=== PATIENT | male | born 1935 | race Caucasian/White ===

== ENCOUNTER 2016-08-08 07:55 | Emergency (ER) | payer MEDICARE, OTHER ==
[2016-08-08 08:02] VITALS: TEMP 97.9
[2016-08-08] MEDS ORDERED: RX INFO: IV CONTRAST WAS GIVEN 1 EACH MISC MISCELLANE PRN (08:16)
[2016-08-08] MEDS ORDERED: SODIUM CHLORIDE 0.9% 1,000 ML IV STA (08:17)
--- NOTE | 2016-08-08 08:24 | ED ---
Fall HPI - General Chief Complaint: Fall Stated Complaint: Hip pain Time Seen by Provider: 08/08/16 08:10 Source: patient, RN notes reviewed Mode of arrival: wheelchair - History of Present Illness Initial Comments: 80-year-old male presents to the emergency department with a chief complaint of right flank pain. Patient had a fall in the bathroom last night and continues to complain of pain to the right flank area. They state he did not hit his head. He does take aspirin. He is complaining of pain to the right flank area as well as right hip pain. He has been able to ambulate since the incident. They noticed a bruise of the right flank so they are concerned. Patient has no head injury. He denies any other complaints or any other injuries at this time. States his pain is mild worse to touch.Patient denies any recent fever, chills, shortness of breath, chest pain, abdominal pain, nausea vomiting, numbness or tingling, dysuria or hematuria, constipation or diarrhea, headaches or visual changes, or any other current symptoms. - Related Data Home Medications Medication Instructions Recorded Confirmed Allopurinol [Zyloprim] 300 mg PO Q48H 08/08/16 08/08/16 Aspirin 81 mg PO DAILY 08/08/16 08/08/16 Atorvastatin [Lipitor] 20 mg PO HS 08/08/16 08/08/16 Brinzolamide/Brimonidine Tart 1 drop BOTH EYES BID 08/08/16 08/08/16 [Simbrinza 1%-0.2% Eye Drops] Cholecalciferol [Vitamin D3] 1,000 unit PO DAILY 08/08/16 08/08/16 Cyanocobalamin (Vitamin B-12) 1,000 mcg PO DAILY 08/08/16 08/08/16 [Vitamin B-12] Galantamine HBr [Galantamine ER] 8 mg PO DAILY 08/08/16 08/08/16 Glimepiride [Amaryl] 1 mg PO AC-BRKFST 08/08/16 08/08/16 Latanoprost [Xalatan 0.005%] 1 drop RIGHT EYE HS 08/08/16 08/08/16 Memantine [Namenda] 10 mg PO BID 08/08/16 08/08/16 Metoprolol Succinate (ER) [Toprol 100 mg PO DAILY 08/08/16 08/08/16 Xl] Terazosin HCl 5 mg PO HS 08/08/16 08/08/16 Valsartan [Diovan] 160 mg PO DAILY 08/08/16 08/08/16 Previous Rx's Medication Instructions Recorded Azithromycin [Zithromax] 250 mg PO DIRECTED #6 tab 08/08/16 Allergies Allergy/AdvReac Type Severity Reaction Status Date / Time No Known Allergies Allergy Verified 08/08/16 08:54 Review of Systems ROS Statement: Those systems with pertinent positive or pertinent negative responses have been documented in the HPI. ROS Other: All systems not noted in ROS Statement are negative. Past Medical History Past Medical History: Hyperlipidemia, Hypertension History of Any Multi-Drug Resistant Organisms: None Reported Past Surgical History: No Surgical Hx Reported Past Psychological History: No Psychological Hx Reported Smoking Status: Never smoker Past Alcohol Use History: None Reported Past Drug Use History: None Reported General Exam - General Exam Comments Initial Comments: General: The patient is awake and alert, in no distress, and does not appear acutely ill. Eye: Pupils are equal, round and reactive to light, extra-ocular movements are intact; there is normal conjunctiva bilaterally. No signs of icterus. Ears, nose, mouth and throat: There are moist mucous membranes and no oral lesions. Neck: The neck is supple, there is no tenderness. Cardiovascular: There is a regular rate and rhythm. No murmur, rub or gallop is appreciated. Respiratory: Lungs are clear to auscultation, respirations are non-labored, breath sounds are equal. No wheezes, stridor, rales, or rhonchi. Gastrointestinal: Soft, non-distended, non-tender abdomen without masses or organomegaly noted. There is no rebound or guarding present. No CVA tenderness. Bowel sounds are unremarkable. Bruising over the left flank with some associated point tenderness. Back: There is no tenderness to palpation in the midline. There is no obvious deformity. No rashes noted. Musculoskeletal: Normal ROM, no tenderness, There is no pedal edema. There is no calf tenderness or swelling. Sensation intact. Pulses equal bilaterally 2+. Neurological: CN II-XII intact, There are no obvious motor or sensory deficits. Coordination appears grossly intact. Speech is normal. Skin: Skin is warm and dry and no rashes or lesions are noted. Psychiatric: Cooperative, appropriate mood & affect, normal judgment. Limitations: no limitations Course Vital Signs 08/08/16 08/08/16 07:59 10:00 Temperature 97.9 F Pulse Rate 64 67 Respiratory 18 18 Rate Blood Pressure 173/78 192/88 O2 Sat by Pulse 97 95 Oximetry Medical Decision Making - Medical Decision Making 80-year-old male presents for fall. At this time patient's CAT scan x-rays are reviewed and negative. There is concern for possible pneumonia. Patient has no symptoms however due to the findings we'll start him on a course of azithromycin. We did discuss close follow-up with his doctor return parameters all questions. They state Michael management plan. They will be discharged home. - Lab Data Result diagrams: 08/08/16 08:37 08/08/16 08:37 Lab Results 08/08/16 08/08/16 08/08/16 Range/Units 08:37 08:37 08:37 WBC 8.4 (3.8-10.6) k/uL RBC 4.32 (4.30-5.90) m/uL Hgb 13.9 (13.0-17.5) gm/dL Hct 42.0 (39.0-53.0) % MCV 97.3 (80.0-100.0) fL MCH 32.1 (25.0-35.0) pg MCHC 33.0 (31.0-37.0) g/dL RDW 14.1 (11.5-15.5) % Plt Count 176 (150-450) k/uL Neutrophils % 60 % Lymphocytes % 28 % Monocytes % 6 % Eosinophils % 5 % Basophils % 0 % Neutrophils # 5.1 (1.3-7.7) k/uL Lymphocytes # 2.3 (1.0-4.8) k/uL Monocytes # 0.5 (0-1.0) k/uL Eosinophils # 0.4 (0-0.7) k/uL Basophils # 0.0 (0-0.2) k/uL PT 10.4 (9.0-12.0) sec INR 1.0 (<1.1) APTT 25.3 (22.0-30.0) sec Sodium 142 (137-145) mmol/L Potassium 4.2 (3.5-5.1) mmol/L Chloride 107 (98-107) mmol/L Carbon Dioxide 25 (22-30) mmol/L Anion Gap 10 mmol/L BUN 24 H (9-20) mg/dL Creatinine 1.31 H (0.66-1.25) mg/dL Est GFR (MDRD) Af Amer >60 (>60 ml/min/1.73 sqM) Est GFR (MDRD) Non-Af 52 (>60 ml/min/1.73 sqM) Glucose 115 H (74-99) mg/dL Calcium 9.0 (8.4-10.2) mg/dL Total Bilirubin 0.9 (0.2-1.3) mg/dL AST 39 (17-59) U/L ALT 28 (21-72) U/L Alkaline Phosphatase 67 (38-126) U/L Total Protein 7.1 (6.3-8.2) g/dL Albumin 4.0 (3.5-5.0) g/dL Urine Color Urine Appearance (Clear) Urine pH (5.0-8.0) Ur Specific Hudson (1.001-1.035) Urine Protein (Negative) Urine Glucose (UA) (Negative) Urine Ketones (Negative) Urine Blood (Negative) Urine Nitrite (Negative) Urine Bilirubin (Negative) Urine Urobilinogen (<2.0) mg/dL Ur Leukocyte Esterase (Negative) Urine RBC (0-5) /hpf Urine WBC (0-5) /hpf Hyaline Casts (0-2) /lpf Urine Mucus (None) /hpf 08/08/16 Range/Units 08:45 WBC (3.8-10.6) k/uL RBC (4.30-5.90) m/uL Hgb (13.0-17.5) gm/dL Hct (39.0-53.0) % MCV (80.0-100.0) fL MCH (25.0-35.0) pg MCHC (31.0-37.0) g/dL RDW (11.5-15.5) % Plt Count (150-450) k/uL Neutrophils % % Lymphocytes % % Monocytes % % Eosinophils % % Basophils % % Neutrophils # (1.3-7.7) k/uL Lymphocytes # (1.0-4.8) k/uL Monocytes # (0-1.0) k/uL Eosinophils # (0-0.7) k/uL Basophils # (0-0.2) k/uL PT (9.0-12.0) sec INR (<1.1) APTT (22.0-30.0) sec Sodium (137-145) mmol/L Potassium (3.5-5.1) mmol/L Chloride (98-107) mmol/L Carbon Dioxide (22-30) mmol/L Anion Gap mmol/L BUN (9-20) mg/dL Creatinine (0.66-1.25) mg/dL Est GFR (MDRD) Af Amer (>60 ml/min/1.73 sqM) Est GFR (MDRD) Non-Af (>60 ml/min/1.73 sqM) Glucose (74-99) mg/dL Calcium (8.4-10.2) mg/dL Total Bilirubin (0.2-1.3) mg/dL AST (17-59) U/L ALT (21-72) U/L Alkaline Phosphatase (38-126) U/L Total Protein (6.3-8.2) g/dL Albumin (3.5-5.0) g/dL Urine Color Yellow Urine Appearance Clear (Clear) Urine pH 5.5 (5.0-8.0) Ur Specific Hudson 1.016 (1.001-1.035) Urine Protein Trace H (Negative) Urine Glucose (UA) Negative (Negative) Urine Ketones Negative (Negative) Urine Blood Trace H (Negative) Urine Nitrite Negative (Negative) Urine Bilirubin Negative (Negative) Urine Urobilinogen <2.0 (<2.0) mg/dL Ur Leukocyte Esterase Negative (Negative) Urine RBC 2 (0-5) /hpf Urine WBC 1 (0-5) /hpf Hyaline Casts 4 H (0-2) /lpf Urine Mucus Rare H (None) /hpf - Radiology Data Radiology results: report reviewed, image reviewed Disposition Clinical Impression: Fall, Contusion of right side of back, Contusion of right hip, Pneumonia involving right lung Disposition: HOME SELF-CARE Condition: Stable Instructions: Contusion in Adults (ED) Additional Instructions: Please use medication as discussed. Please follow up with family doctor if symptoms have not improved over the next two days. Please return to the emergency room if your symptoms increase or worsen or for any other concerns. Prescriptions: Azithromycin [Zithromax] 250 mg PO DIRECTED #6 tab Referrals: Yina Terrazas MD [Primary Care Provider] - 1-2 days Time of Disposition: 11:08
[2016-08-08 08:47] LABS: Basophils % (A) 0 %; CH 31.8; CHCM 32.9; Eosinophils # (A) 0.4 k/uL (0-0.7); Eosinophils % (A) 5 %; HGB 13.9 gm/dL (13.0-17.5); Luc # (Auto) 0.16; Luc % (Auto) 2; Lymphocytes # (A) 2.3 k/uL (1.0-4.8); Lymphocytes % (A) 28 %; MCH 32.1 pg (25.0-35.0); MCV 97.3 fL (80.0-100.0); Mean Platelet Volume 7.7; Monocytes # (A) 0.5 k/uL (0-1.0); Monocytes % (A) 6 %; Neutrophils # (A) 5.1 k/uL (1.3-7.7); Neutrophils % (A) 60 %; RBC 4.32 m/uL (4.30-5.90); RDW 14.1 % (11.5-15.5); WBC 8.4 k/uL (3.8-10.6); WBC (Perox) 7.83
[2016-08-08 08:56] LABS: Prothrombin Time 10.4 sec (9.0-12.0)
[2016-08-08 08:57] LABS: Partial Thromboplastin Time 25.3 sec (22.0-30.0)
[2016-08-08 08:59] LABS: Appearance,Urine Clear (Clear); Bilirubin,Urine Negative (Negative); Glucose,Urine (UA) Negative (Negative); Ketones,Urine Negative (Negative); Leukocyte Esterase,Urine Negative (Negative); Mucus,Urine Rare /hpf; Nitrite,Urine Negative (Negative); PH, Urine 5.5 (5.0-8.0); Particle Count 1524; Protein,Urine Trace (Negative); RBC,Urine 2 /hpf (0-5); Specific Gravity,Urine 1.016 (1.001-1.035); UA Billing (MACRO vs. MICRO) MICRO; Urobilinogen,Urine <2.0 mg/dL (<2.0); WBC,Urine 1 /hpf (0-5)
[2016-08-08 09:03] LABS: ALT 28 U/L (21-72); AST 39 U/L (17-59); Alkaline Phosphatase 67 U/L (38-126); Anion Gap 10 mmol/L; Blood Urea Nitrogen 24 mg/dL (9-20); Carbon Dioxide 25 mmol/L (22-30); Chloride 107 mmol/L (98-107); Glucose 115 mg/dL (74-99); Non-African American GFR(MDRD) 52 (>60 ml/min/1.73 sqM); Potassium 4.2 mmol/L (3.5-5.1); Sodium 142 mmol/L (137-145); Total Bilirubin 0.9 mg/dL (0.2-1.3); Total Protein 7.1 g/dL (6.3-8.2)
--- NOTE | 2016-08-08 09:10 | XR ---
EXAMINATION TYPE: XR Hip RT and AP Pelvis DATE OF EXAM: 08/08/2016 COMPARISON: NONE HISTORY: Pain TECHNIQUE: A single AP view of the pelvis is obtained. Two views of the right hip are obtained. FINDINGS: Pelvic ring is intact. Proximal right femur and hip joints are intact. Sacroiliac joints appear danny l. IMPRESSION: Negative pelvis and right hip exam.
[2016-08-08] MEDS ORDERED: SODIUM CHLORIDE 0.9% 500 ML IV STA (09:15)
[2016-08-08] MEDS ORDERED: HYDROmorphone 1 MG/ML 1 ML SYRINGE IVP STA (10:02)
--- NOTE | 2016-08-08 11:02 | CT ---
EXAMINATION TYPE: CT abdomen pelvis w con DATE OF EXAM: 08/08/2016 COMPARISON: 09/18/2013 HISTORY: Right hip painq CT DLP: 1357 mGycm Automated exposure control for dose reduction was used. TECHNIQUE: Helical acquisition of images was performed from the lung bases through the pelvis. CONTRAST: Performed without Oral Contrast and with IV Contrast, patient injected with 80 ml mL of Visipaque 320 . FINDINGS: There is coarse infiltrate at both lung bases and more on the right side. There is mild pleural thick ening in the right lower lobe. There is interposition of the hepatic flexure of the colon which is a normal variant. Bile ducts are not dilated. Spleen appears normal. There is no pancreatic mass. Gallbladder appears normal. Abdomina l aorta is atheromatous. There is no adrenal mass. There are bilateral renal cortical cysts that measure up to 2 cm. There is no hydronephrosis. There is no retroperitoneal adenopathy. Appendix appears normal. I see no intestin al wall thickening. There are no dilated loops. There are a few sigmoid diverticula. Prostate is enla rged. Bladder distends smoothly. Prostate measures 6 cm. There are spondylotic changes in the thoraci c and lumbar spine. Proximal femurs are intact. There is symmetric mild acetabular spurring. Sacroili ac joints appear normal. IMPRESSION: ATHEROSCLEROTIC VASCULAR DISEASE. SMALL RENAL CORTICAL CYSTS. NO FRACTURE. SPONDYLOTIC CHANGES IN THE LUMBAR SPINE. MILD COLONIC DIVERTICULOSIS. THERE IS NEW PLEURAL THICKENING AT THE RIGHT LUNG BASE WITH MILD BASILAR PULMONARY INFILTRATES. I DO NOT SEE A CAUSE FOR RIGHT HIP PAIN.
[2016-08-08 11:36] VITALS: BP 141/69; PULSE 63; RESP 16
== END 2016-08-08 11:36 | disposition home or self-care (01) ==
LOC: EC 07:55
DX: S70.01XA Contusion of right hip, initial encounter (principal); S30.1XXA Contusion of abdominal wall, initial encounter; J18.9 Pneumonia, unspecified organism; E78.5 Hyperlipidemia, unspecified; I10 Essential (primary) hypertension; Z79.82 Long term (current) use of aspirin; Z79.84 Long term (current) use of oral hypoglycemic drugs; Z79.899 Other long term (current) drug therapy; W19.XXXA Unspecified fall, initial encounter; Y92.091 Bathroom in other non-institutional residence as the place of occurrence of the external cause
CPT/HCPCS: 99284; 96374; 96361 ×3; 36415; 80053; 85025; 85610; 85730; 81001; 73502; 74177; Q9967; J1170

== ENCOUNTER → 2017-05-03 | Outpatient (CLI) | payer MEDICARE, OTHER ==
--- NOTE | 2017-05-03 21:52 | ECHOF ---
Referral Reason:R94.31 Abn Ekg MEASUREMENTS -------- HEIGHT: 157.5 cm WEIGHT: 68.0 kg BP: 148/70 IVSd: 1.2 cm (0.6 - 1.1) LVIDd: 3.3 cm (3.9 - 5.3) LVPWd: 1.2 cm (0.6 - 1.1) IVSs: 1.4 cm LVIDs: 2.8 cm LVPWs: 1.4 cm LAESV Index (A-L): 24.47 ml/m Ao Diam: 2.8 cm (2.0 - 3.7) AV Cusp: 1.4 cm (1.5 - 2.6) LA Diam: 3.8 cm (2.7 - 3.8) EPSS: 1.2 cm MV E Abdirashid: 0.69 m/s MV DecT: 224 ms MV A Abdirashid: 0.96 m/s MV E/A Ratio: 0.72 AV maxP.72 mmHg AV meanP.75 mmHg AR PHT: 636 ms RAP: 5.00 mmHg RVSP: 32.84 mmHg MV EF SLOPE: 22.95 mm/s (70 - 150) MV EXCURSION: 1.30 cm (> 18.000) FINDINGS -------- Sinus rhythm. This was a technically good study. The left ventricular size is normal. There is mild concentric left ventricular hypertrophy. There is mild global hypokinesis of LV . Overall left ventricular systolic function is mild-moderately i mpaired with, an EF between 40 - 45 %. The right ventricle is normal in size and function. Normal LA size by volume 22+/-6 ml/m2. The right atrium is normal in size. Aortic valve is trileaflet and is mildly thickened. There is mild aortic regurgitation. The aorti c pressure half-time by doppler is 636ms. There is no evidence of aortic stenosis. The mitral valve leaflets are mildly thickened. Mild mitral annular calcification present. Mild m itral regurgitation is present. There is mildly calcified chordae. Mild tricuspid regurgitation present. Right ventricular systolic pressure is normal at < 35 mmHg. There is no evidence of pulmonary hypertension. Trace/mild (physiologic) pulmonic regurgitation. The aortic root size is normal. Normal inferior vena cava with normal inspiratory collapse consistent with estimated right atrial pre ssure of 5 mmHg. There is no pericardial effusion. CONCLUSIONS -------- 1. Sinus rhythm. 2. This was a technically good study. 3. The left ventricular size is normal. 4. There is mild concentric left ventricular hypertrophy. 5. There is mild global hypokinesis of LV . 6. Overall left ventricular systolic function is mild-moderately impaired with, an EF between 40 - 45 %. 7. Normal LA size by volume 22+/-6 ml/m2. 8. Aortic valve is trileaflet and is mildly thickened. 9. There is mild aortic regurgitation. 10. The aortic pressure half-time by doppler is 636ms. 11. The mitral valve leaflets are mildly thickened. 12. Mild mitral annular calcification present. 13. Mild mitral regurgitation is present. 14. There is mildly calcified chordae. 15. Mild tricuspid regurgitation present. 16. Right ventricular systolic pressure is normal at < 35 mmHg. 17. There is no evidence of pulmonary hypertension. 18. Trace/mild (physiologic) pulmonic regurgitation. 19. The aortic root size is normal. 20. There is no pericardial effusion. [employer] M[employer] OPERATOR: Patrick Sharma RDCS
== END | disposition home or self-care (01) ==
LOC: RADECHMAIN 08:13
PROVIDERS: ATTEND Family Medicine
DX: I08.3 Combined rheumatic disorders of mitral, aortic and tricuspid valves (principal)
CPT/HCPCS: 93306

== ENCOUNTER → 2018-04-23 | Outpatient (CLI) | payer MEDICARE, OTHER ==
--- NOTE | 2018-04-25 09:54 | ECHOF ---
Referral Reason:I42.0 Congestive cardiomopathy MEASUREMENTS -------- HEIGHT: 157.5 cm WEIGHT: 68.9 kg BP: IVSd: 1.2 cm (0.6 - 1.1) LVIDd: 5.4 cm (3.9 - 5.3) LVPWd: 1.2 cm (0.6 - 1.1) IVSs: 1.4 cm LVIDs: 4.4 cm LVPWs: 1.3 cm LA Diam: 4.1 cm (2.7 - 3.8) LAESV Index (A-L): 39.96 ml/m Ao Diam: 3.0 cm (2.0 - 3.7) AV Cusp: 1.0 cm (1.5 - 2.6) LA Diam: 4.4 cm (2.7 - 3.8) MV EXCURSION: 14.577 mm (> 18.000) MV EF SLOPE: 38 mm/s (70 - 150) EPSS: 0.6 cm MV E Abdirashid: 0.57 m/s MV DecT: 261 ms MV A Abdirashid: 0.94 m/s MV E/A Ratio: 0.61 AR PHT: 477 ms RAP: 5.00 mmHg RVSP: 25.57 mmHg FINDINGS -------- Sinus rhythm. This was a technically adequate study. The left ventricular size is normal. There is mild concentric left ventricular hypertrophy. Overa ll left ventricular systolic function is normal with, an EF between 55 - 60 %. Left ventricular henry limg pressure cannot be estimated due to severe mitral annular calcification. The right ventricle is normal in size. The left atrium is markedly dilated. LA is severely dilated >40 ml/m2 The right atrial size is normal. There is mild aortic valve sclerosis. There is mild aortic regurgitation. The mitral valve leaflets are moderately thickened. Moderate mitral annular calcification present. No mitral regurgitation. Mild tricuspid regurgitation present. There is mild pulmonary hypertension. The right ventricular systolic pressure, as measured by Doppler, is 25.57mmHg. Trace/mild (physiologic) pulmonic regurgitation. The aortic root size is normal. There is no pericardial effusion. CONCLUSIONS -------- 1. The left ventricular size is normal. 2. There is mild concentric left ventricular hypertrophy. 3. Overall left ventricular systolic function is normal with, an EF between 55 - 60 %. 4. The right ventricle is normal in size. 5. The left atrium is markedly dilated. 6. LA is severely dilated >40 ml/m2 7. The right atrial size is normal. 8. There is mild aortic valve sclerosis. 9. There is mild aortic regurgitation. 10. The mitral valve leaflets are moderately thickened. 11. No mitral regurgitation. 12. Mild tricuspid regurgitation present. 13. There is mild pulmonary hypertension. 14. The right ventricular systolic pressure, as measured by Doppler, is 25.57mmHg. 15. Trace/mild (physiologic) pulmonic regurgitation. 16. The aortic root size is normal. 17. There is no pericardial effusion. UTILITY SALES REPRESENTATIVE: Aide Herman RDCS
== END ==
LOC: RADECHMAIN 14:35
PROVIDERS: ATTEND Family Medicine
DX: I08.2 Rheumatic disorders of both aortic and tricuspid valves (principal); I27.20 Pulmonary hypertension, unspecified; I37.1 Nonrheumatic pulmonary valve insufficiency
CPT/HCPCS: 93306

== ENCOUNTER → 2019-04-10 | Outpatient (CLI) | payer MEDICARE, OTHER ==
--- NOTE | 2019-04-10 15:15 | US ---
EXAMINATION TYPE: US bladder DATE OF EXAM: 04/10/2019 COMPARISON: NONE CLINICAL HISTORY: C61. Prostate ca. prostate cancer, urinary frequency EXAM MEASUREMENTS: Post Void Residual Volume: 13.6 mL Color Doppler performed to assess ureteral jets. Bilateral Jets seen: no Normal Post Void Residual (less than 50ml): yes Bladder wall = 0.6cm Diffusely heterogenous and enlarged partially visualized prostate gland IMPRESSION: 1. Diffusely thickened urinary bladder wall however this may relate to incomplete distention as this was measured on post void images with residual of only 13.6 mL. Correlate with urinalysis. 2. Incidentally partially visualized diffusely heterogenous and enlarged prostate gland.
== END | disposition home or self-care (01) ==
LOC: RADUSWWP 14:41
PROVIDERS: ATTEND Family Medicine
DX: N32.89 Other specified disorders of bladder (principal); C61 Malignant neoplasm of prostate
CPT/HCPCS: 76857

== ENCOUNTER → 2019-11-04 | Outpatient (CLI) | payer MEDICARE, OTHER ==
--- NOTE | 2019-11-05 07:12 | US ---
EXAMINATION TYPE: US kidneys/renal and bladder DATE OF EXAM: 11/04/2019 COMPARISON: NONE CLINICAL HISTORY: N18.3 chronic kidney ds, stage 3. CKD 3 EXAM MEASUREMENTS: Right Kidney: 8.8 x 4.8 x 3.9 cm Left Kidney: 10.1 x 4.6 x 4.4 cm Prominent prostate seen 5.4 x 5.6 x 6.2 cm Right Kidney: Cystic area lower pole .7 x .7 x .8 cm Left Kidney: Complex cystic area upper pole 2.2 x 2.5 x 2.4 cm. Bladder: Anechoic Bilateral Jets seen: :No only right jet. IMPRESSION: 1. No hydronephrosis or nephrolithiasis. 2. Complex cystic structure upper pole left kidney measuring 2.[address] of the abdomen and pelvis. 3. Prostate hypertrophy.
== END | disposition home or self-care (01) ==
LOC: RADUSWWP 15:44
PROVIDERS: ATTEND Family Medicine
DX: N28.1 Cyst of kidney, acquired (principal); N18.3 Chronic kidney disease, stage 3 (moderate)
CPT/HCPCS: 76770

== ENCOUNTER → 2019-11-24 | Outpatient (CLI) | payer MEDICARE, OTHER ==
--- NOTE | 2019-11-25 19:53 | CT ---
EXAMINATION TYPE: CT abdomen pelvis wo con DATE OF EXAM: 11/24/2019 COMPARISON: Ultrasound kidneys 11/04/2019. CT abdomen pelvis w con 08/08/2016. HISTORY: Follow up US CT DLP: 567 mGycm Automated exposure control for dose reduction was used. TECHNIQUE: Helical acquisition of images was performed from the lung bases through the pelvis. CONTRAST: Performed with Oral Contrast and without intravenous contrast. FINDINGS: LUNG BASES: 5 mm pulmonary nodule of the left lower lobe (4:8) is unchanged versus 2017 comparison an d most likely benign. Redemonstrated right basilar pleural thickening. No pericardial or pleural effu vikas. Calcified coronary artery disease. Borderline cardiomegaly. LIVER: Normal attenuation and size. BILIARY SYSTEM: No intrahepatic or extrahepatic biliary ductal dilatation. PANCREAS: No peripancreatic stranding or fluid collection. SPLEEN: Not enlarged. ADRENALS: Normal. KIDNEYS: No hydronephrosis or urolithiasis. Renal cysts are incompletely evaluated with lack of intra venous contrast. A simple 2.0 x 2.0 x 1.7 cm cyst of the left interpolar kidney is seen with septatio n, which correspond to 11/04/2019 ultrasound comparison, and is not significantly changed versus 2017 CT comparison. A 1.0 cm exophytic cyst of the anterior interpolar left kidney (3:32) previously measu red 0.6 cm on 2017 comparison, and corresponds with a multiseptated cyst seen on 11/04/2019 ultrasound comparison. A left renal upper pole exophytic septated cyst measures 1.6 x 1.8 x 1.5 cm (3:25, 6:41) , which is increased versus 2017 CT comparison when it measured 1.2 x 1.5 x 1.0 cm, and with not seen on 11/04/2019 ultrasound comparison as the superiormost aspect of the upper pole was obscured. Subcen timeter hypodense lesion of the right lower pole (3:41) corresponds with a simple cyst seen on 020 ultrasound. BOWEL: No obstruction or thickening. PERITONEUM: No pneumoperitoneum. No free fluid. LYMPH NODES: No lymphadenopathy. PELVIS: Incompletely distended urinary bladder. Prostatomegaly. VASCULATURE: Marked calcified atherosclerotic disease. Infrarenal abdominal aortic ectasia measures up to 2.9 cm AP. Right common iliac artery measures up to 1.6 cm. Left common iliac artery focal outp ouching measures up to 1.5 cm. MUSCULOSKELETAL: Degenerative changes of the spine. No aggressive osseous lesions. IMPRESSION: 1. Septated cystic lesions of the left kidney are incompletely evaluated with lack of intravenous co ntrast. 2 of the lesions are mildly increased in size versus 2017 CT comparison, largest measuring up to 1.8 cm. The upper pole lesion is not visualized on 11/04/2019 ultrasound comparison. Recommend fabiola al MRI in 6 months for further evaluation and size stability. 2. Prostatomegaly. 3. Infrarenal abdominal aortic and common iliac artery ectasia as above.
== END | disposition home or self-care (01) ==
LOC: RADCTMAIN 10:22
PROVIDERS: ATTEND Family Medicine
DX: N28.1 Cyst of kidney, acquired (principal); N40.0 Benign prostatic hyperplasia without lower urinary tract symptoms
CPT/HCPCS: 74176

== ENCOUNTER → 2020-03-30 | Outpatient (CLI) | payer MEDICARE, OTHER | END | disposition home or self-care (01) | LOC: LABWHC1 10:24 | PROVIDERS: ATTEND Urology | DX: R97.20 Elevated prostate specific antigen [PSA] (principal) | CPT/HCPCS: 36415; 84153 ==

== ENCOUNTER → 2020-05-25 | Outpatient (CLI) | payer MEDICARE, OTHER ==
--- NOTE | 2020-05-25 14:43 | US ---
EXAMINATION TYPE: US kidneys/renal and bladder DATE OF EXAM: 05/25/2020 COMPARISON: 11/04/2019 CLINICAL HISTORY: 84-year-old male N28.1 Cyst of kidney. TECHNIQUE: Multiple sonographic images of the kidneys and bladder are obtained. FINDINGS: EXAM MEASUREMENTS: Right Kidney: 9.1 x 4.2 x 4.2 cm Left Kidney: 10.3 x 4.6 x 4.5 cm Right Kidney: Lower pole cyst measuring 0.6 x 0.5 x 0.5 cm. Centrally located mid to upper pole cyst measuring 1.2 x 1.0 x 1.0cm. This has a somewhat hypoechoic appearance on the sagittal image for whic h follow-up is recommended. Left Kidney: Upper pole cyst measuring 1.2 x 1.2 x 1.1 cm. There is a septated cyst measuring 2.4 x 2 .3 x 2.2 cm at the upper to mid pole (versus 2.5 x 2.4 x 2.2 cm, previously). There is some focal lo wer pole caliectasis. Bladder: bladder wall measures 4.4mm , mildly thickened. Patient's known enlarged prostate gland not well demonstrated on the present study. IMPRESSION: 1. A 1.2 cm centrally located cyst in the upper to mid pole of the right kidney appears hypoechoic on the sagittal images. Six-month follow-up recommended to reassess. 2. Septated cyst within the upper to mid pole of the left kidney is stable at 2.4 cm. 3. Focal lower pole caliectasis in the left kidney. This may be transient and should also be reassess ed at the 6 month follow-up.
== END | disposition home or self-care (01) ==
LOC: RADUSWWP 12:26
PROVIDERS: ATTEND Family Medicine
DX: N28.1 Cyst of kidney, acquired (principal)
CPT/HCPCS: 76770

== ENCOUNTER → 2020-11-09 | Outpatient (CLI) | payer MEDICARE, OTHER ==
--- NOTE | 2020-11-09 11:08 | US ---
EXAMINATION TYPE: US kidneys/renal and bladder DATE OF EXAM: 11/09/2020 COMPARISON: Prior renal ultrasound May 25, [address] CT November 24, 2019 CLINICAL HISTORY: N28.1 Cyst of Kidney. EXAM MEASUREMENTS: Right Kidney: 9.0 x 4.0 x 3.9 cm Left Kidney: 10.6 x 4.0 x 4.3 cm Right Kidney: mid upper cyst appears more anechoic on today's study measuring 1.2 x 1.0 x 1.0cm, low er pole cyst measuring 0.8 x 0.7 x 0.7cm Left Kidney: upper pole septated cyst measuring 2.3 x 2.3 x 2.0cm, upper pole cyst measuring 1.0 x 0. 9 x 0.9cm, possible mild hydronephrosis, Bladder: thickened bladder wall Technically difficult. Elderly gentleman who had trouble holding his breath, extensive midline bowel gas. Exam suboptimal due to patient's inability to hold breath along with body habitus per technologist. T here is some cortical thinning bilaterally and scattered small (thin-walled cysts. Hydronephrosis see n bilaterally. Bladder wall mildly thickened diffusely. There is enlarged prostate on CT noted. Findi ngs likely related to outlet obstruction from BPH. IMPRESSION: Suboptimal study. Evidence of chronic medical renal disease redemonstrated. No new concer emiliano solid or cystic renal mass seen on images saved.
== END | disposition home or self-care (01) ==
LOC: RADUSWWP 09:02
PROVIDERS: ATTEND Family Medicine
DX: N28.1 Cyst of kidney, acquired (principal); N13.30 Unspecified hydronephrosis; N18.30 Chronic kidney disease, stage 3 unspecified
CPT/HCPCS: 76770

== ENCOUNTER 2021-03-27 07:39 | Inpatient (IN) | payer MEDICARE, OTHER ==
[2021-03-27] MEDS ORDERED: NITROGLYCERIN-D5W PMX 50 MG in DEXTROSE/WATER 1 250ML.BAG IV STA (07:42)
[2021-03-27 07:56] LABS: Anisocytosis Slight; Basophils % (A) 0 %; Eosinophils # (A) 0.6 k/uL (0-0.7); Eosinophils % (A) 6 %; HCT 36.5 % (39.0-53.0); HGB 11.2 gm/dL (13.0-17.5); Hypochromasia Marked; Lymphocytes # (A) 3.1 k/uL (1.0-4.8); Lymphocytes % (A) 33 %; MCH 31.2 pg (25.0-35.0); MCHC 30.6 g/dL (31.0-37.0); MCV 101.9 fL (80.0-100.0); Macrocytosis Moderate; Mean Platelet Volume 7.6; Monocytes # (A) 0.4 k/uL (0-1.0); Monocytes % (A) 4 %; Neutrophils # (A) 5.1 k/uL (1.3-7.7); Neutrophils % (A) 54 %; Platelet Count 253 k/uL (150-450); RBC 3.58 m/uL (4.30-5.90); RDW 18.3 % (11.5-15.5); WBC 9.3 k/uL (3.8-10.6)
[2021-03-27 08:04] LABS: Albumin 3.9 g/dL (3.5-5.0); Calcium 8.8 mg/dL (8.4-10.2); Magnesium 2.1 mg/dL (1.6-2.3); Potassium 4.2 mmol/L (3.5-5.1); Total Bilirubin 0.9 mg/dL (0.2-1.3); Total Protein 7.5 g/dL (6.3-8.2)
[2021-03-27 08:12] LABS: INR 0.9 (<1.2); Partial Thromboplastin Time 24.1 sec (22.0-30.0); Prothrombin Time 10.3 sec (9.0-12.0)
--- NOTE | 2021-03-27 08:13 | XR ---
EXAMINATION TYPE: XR chest 1V portable DATE OF EXAM: 03/27/2021 Comparison: None Clinical History: 85-year-old male ricardo, shortness of breath Findings: Heart mildly enlarged. Diffuse perihilar as well as mid and lower lung airspace opacity. No sizable p leural effusion on the frontal view. Impression: Cardiomegaly with perihilar and diffuse mid and lower lung airspace disease. Possible CHF with pulmon aliyah edema.
[2021-03-27] MEDS ORDERED: FUROSEMIDE 10 MG/ML 4 ML VIAL IV STA (08:15)
--- NOTE | 2021-03-27 08:15 | ED ---
General Adult HPI - General Chief complaint: Shortness of Breath Stated complaint: SOB Time Seen by Provider: 03/27/21 07:42 Source: patient, EMS, RN notes reviewed Mode of arrival: EMS Limitations: altered mental status - History of Present Illness Initial comments: 85-year-old male history of dementia presents for evaluation of severe respiratory distress. Patient was transported by paramedics after a call for difficulty breathing. Patient was found to be tachypneic, hypertensive and hypoxic. He was placed on CPAP by paramedics and transported as part of 1. Patient is a poor historian, he is denying central chest pain. Further history from the patient is limited I suspect both a component of dementia as well as language barrier. - Related Data Home Medications Medication Instructions Recorded Confirmed Aspirin 81 mg PO DAILY 08/08/16 08/08/16 Atorvastatin [Lipitor] 20 mg PO HS 08/08/16 08/08/16 Brinzolamide/Brimonidine Tart 1 drop BOTH EYES BID 08/08/16 08/08/16 [Simbrinza 1%-0.2% Eye Drops] Cholecalciferol [Vitamin D3] 1,000 unit PO DAILY 08/08/16 08/08/16 Cyanocobalamin (Vitamin B-12) 1,000 mcg PO DAILY 08/08/16 08/08/16 [Vitamin B-12] Galantamine HBr [Galantamine ER] 8 mg PO DAILY 08/08/16 08/08/16 Glimepiride [Amaryl] 1 mg PO AC-BRKFST 08/08/16 08/08/16 Latanoprost [Xalatan 0.005%] 1 drop RIGHT EYE HS 08/08/16 08/08/16 Memantine [Namenda] 10 mg PO BID 08/08/16 08/08/16 Metoprolol Succinate (ER) [Toprol 100 mg PO DAILY 08/08/16 08/08/16 Xl] Terazosin HCl 5 mg PO HS 08/08/16 08/08/16 Valsartan [Diovan] 160 mg PO DAILY 08/08/16 08/08/16 allopurinoL [Zyloprim] 300 mg PO Q48H 08/08/16 08/08/16 Previous Rx's Medication Instructions Recorded Azithromycin [Zithromax] 250 mg PO DIRECTED #6 tab 08/08/16 Allergies Allergy/AdvReac Type Severity Reaction Status Date / Time No Known Allergies Allergy Verified 08/08/16 08:54 Review of Systems ROS Statement: Those systems with pertinent positive or pertinent negative responses have been documented in the HPI. ROS Other: All systems not noted in ROS Statement are negative. Past Medical History Past Medical History: Dementia, Diabetes Mellitus, Hyperlipidemia, Hypertension History of Any Multi-Drug Resistant Organisms: None Reported Past Surgical History: No Surgical Hx Reported Past Psychological History: No Psychological Hx Reported Past Alcohol Use History: None Reported Past Drug Use History: None Reported General Exam Limitations: altered mental status General appearance: alert, in distress Head exam: Present: atraumatic, normocephalic Eye exam: Present: normal appearance, PERRL ENT exam: Present: normal exam Neck exam: Present: normal inspection. Absent: tenderness, meningismus Respiratory exam: Present: respiratory distress, rales, rhonchi, accessory muscle use, decreased breath sounds Cardiovascular Exam: Present: regular rate, normal rhythm GI/Abdominal exam: Present: soft. Absent: distended, tenderness, guarding Extremities exam: Present: pedal edema (Trace) Neurological exam: Present: alert, CN II-XII intact. Absent: oriented X3, motor sensory deficit Psychiatric exam: Present: anxious Skin exam: Present: warm, dry, intact Course Vital Signs 03/27/21 03/27/21 07:40 07:49 Pulse Rate 111 H 93 Respiratory 22 Rate Blood Pressure 187/118 184/97 O2 Sat by Pulse 100 100 Oximetry EKG Findings - EKG Comments: EKG Findings:: Sinus rhythm, left bundle branch block rate of 95, TN interval 167, QRS duration 165, QTC 465, ST segment elevation consistent with left bundle branch block no prior EKG for comparison. Medical Decision Making - Medical Decision Making 85-year-old male presenting with severe respiratory distress. Initial blood pressure by paramedics was 240/120. He was placed on CPAP and transported to the emergency department. Upon arrival he switched to BiPAP, given nitroglycerin IV push with significant improvement work of breathing. Blood pressure down to 160/90. He is given a dose of Lasix in the emergency depart ment as well. He has chest x-ray confirming CHF. He has mild anemia at 11.2. Creatinine 1.4. Normal electrolytes. Minimal troponin elevation 0.056. An elevated BNP of 4780. His coronavirus testing is negative. He's had no chest pain I confirmed this with the family who is at bedside. He will be admitted to internal medicine with cardiology on consult. - Lab Data Result diagrams: 03/27/21 07:44 03/27/21 07:44 Lab Results 03/27/21 03/27/21 03/27/21 Range/Units 07:44 07:44 07:44 WBC 9.3 (3.8-10.6) k/uL RBC 3.58 L (4.30-5.90) m/uL Hgb 11.2 L (13.0-17.5) gm/dL Hct 36.5 L (39.0-53.0) % MCV 101.9 H (80.0-100.0) fL MCH 31.2 (25.0-35.0) pg MCHC 30.6 L (31.0-37.0) g/dL RDW 18.3 H (11.5-15.5) % Plt Count 253 (150-450) k/uL MPV 7.6 Neutrophils % 54 % Lymphocytes % 33 % Monocytes % 4 % Eosinophils % 6 % Basophils % 0 % Neutrophils # 5.1 (1.3-7.7) k/uL Lymphocytes # 3.1 (1.0-4.8) k/uL Monocytes # 0.4 (0-1.0) k/uL Eosinophils # 0.6 (0-0.7) k/uL Basophils # 0.0 (0-0.2) k/uL Hypochromasia Marked Anisocytosis Slight Macrocytosis Moderate PT 10.3 (9.0-12.0) sec INR 0.9 (<1.2) APTT 24.1 (22.0-30.0) sec Sodium 140 (137-145) mmol/L Potassium 4.2 (3.5-5.1) mmol/L Chloride 108 H (98-107) mmol/L Carbon Dioxide 22 (22-30) mmol/L Anion Gap 10 mmol/L BUN 21 H (9-20) mg/dL Creatinine 1.40 H (0.66-1.25) mg/dL Est GFR (CKD-EPI)AfAm 52 (>60 ml/min/1.73 sqM) Est GFR (CKD-EPI)NonAf 45 (>60 ml/min/1.73 sqM) Glucose 172 H (74-99) mg/dL Calcium 8.8 (8.4-10.2) mg/dL Magnesium 2.1 (1.6-2.3) mg/dL Total Bilirubin 0.9 (0.2-1.3) mg/dL AST 31 (17-59) U/L ALT 10 (4-49) U/L Alkaline Phosphatase 71 (38-126) U/L Troponin I (0.000-0.034) ng/mL NT-Pro-B Natriuret Pep pg/mL Total Protein 7.5 (6.3-8.2) g/dL Albumin 3.9 (3.5-5.0) g/dL Coronavirus (PCR) (Not Detectd) 03/27/21 03/27/21 03/27/21 Range/Units 07:44 07:44 07:44 WBC (3.8-10.6) k/uL RBC (4.30-5.90) m/uL Hgb (13.0-17.5) gm/dL Hct (39.0-53.0) % MCV (80.0-100.0) fL MCH (25.0-35.0) pg MCHC (31.0-37.0) g/dL RDW (11.5-15.5) % Plt Count (150-450) k/uL MPV Neutrophils % % Lymphocytes % % Monocytes % % Eosinophils % % Basophils % % Neutrophils # (1.3-7.7) k/uL Lymphocytes # (1.0-4.8) k/uL Monocytes # (0-1.0) k/uL Eosinophils # (0-0.7) k/uL Basophils # (0-0.2) k/uL Hypochromasia Anisocytosis Macrocytosis PT (9.0-12.0) sec INR (<1.2) APTT (22.0-30.0) sec Sodium (137-145) mmol/L Potassium (3.5-5.1) mmol/L Chloride (98-107) mmol/L Carbon Dioxide (22-30) mmol/L Anion Gap mmol/L BUN (9-20) mg/dL Creatinine (0.66-1.25) mg/dL Est GFR (CKD-EPI)AfAm (>60 ml/min/1.73 sqM) Est GFR (CKD-EPI)NonAf (>60 ml/min/1.73 sqM) Glucose (74-99) mg/dL Calcium (8.4-10.2) mg/dL Magnesium (1.6-2.3) mg/dL Total Bilirubin (0.2-1.3) mg/dL AST (17-59) U/L ALT (4-49) U/L Alkaline Phosphatase (38-126) U/L Troponin I 0.056 H* (0.000-0.034) ng/mL NT-Pro-B Natriuret Pep 4780 pg/mL Total Protein (6.3-8.2) g/dL Albumin (3.5-5.0) g/dL Coronavirus (PCR) Not Detected (Not Detectd) Critical Care Time Critical Care Time: Yes Total Critical Care Time: 35 Disposition Clinical Impression: Acute pulmonary edema, Congestive heart failure Disposition: ADMITTED IP TO THIS [facility] Condition: Serious Is patient prescribed a controlled substance at d/c from ED?: No Referrals: Yina Terrazas MD [Primary Care Provider] - 1-2 days Decision to Admit Reason: Admit from EC Decision Date: 03/27/21 Decision Time: 08:38
[2021-03-27] MEDS ORDERED: ACETAMINOPHEN TAB 325 MG TAB PO PRN ×2 (08:32→13:29)
[2021-03-27] MEDS ORDERED: ASPIRIN 325 MG TAB PO STA (08:32)
[2021-03-27] MEDS ORDERED: NALOXONE 0.4 MG/ML 1 ML VIAL IV PRN (08:32)
[2021-03-27] MEDS ORDERED: FUROSEMIDE 10 MG/ML 4 ML VIAL IV SCH (09:00)
[2021-03-27] MEDS ORDERED: HEPARIN SODIUM 1,000 UN/ML (10ML VL) IV PRN (12:31)
[2021-03-27] MEDS ORDERED: HEPARIN SODIUM 1,000 UN/ML (10ML VL) IV ONE (12:31)
--- NOTE | 2021-03-27 13:28 | P.HPIM ---
History of Present Illness H&P Date: 03/27/21 85 yr old [place] with past medical history of dementia, hypertension, diabetes comes in with increased shortness of breath associated with headache for 1 day. Patient is stable at baseline does not get admitted to the hospital. at bedside is able to provide history. The patient is noted to be comfortable currently on BiPAP.Patient was noted to be in severe acute respiratory distress and brought to the emergency room. His tachycardia to Heart tachycardic hypertensive and hypoxic. Vitals reviewed patient pulse was 111 on admission was 222 blood pressure 187/118. EKG obtained as it is with sinus rhythm with left bundle branch block rate of 95. Patient's blood pressure improved to 160/80 and breathing improved while on BiPAP. He was given nitroglycerin drip. A dose of Lasix was given in the ER as well. Chest x-ray does suggest congestive heart failure. Labs are reviewed hemoglobin 11.1 hematocrit 101, sodium 140 chloride 108 BUN 21 creatinine 1.4 troponin elevated to 0.056 seconds troponin 0.0310 BNP 4780 ROS Constitutional: Denies chills, Denies fever, Denies lethargy, Denies malaise, Denies poor appetite, Denies weakness, Denies weight loss Eyes: denies decreased vision, denies diplopia, denies discharge, denies pain Ears: deny: decreased hearing Ears, nose, mouth and throat: Denies dental pain, Denies headache, Denies nasal discharge, Denies nose pain Cardiovascular: Denies chest pain, Denies decreased exercise tolerance, Denies edema, Denies high blood pressure, Denies irregular heart beat, Denies palpitations, Denies paroxysmal nocturnal dyspnea, Denies rapid heart beat, endorses ness of breath Respiratory: Denies congestion, Denies cough, Denies cough with sputum, endorses dyspnea, Denies home oxygen, Denies wheezing Gastrointestinal: Denies abdominal pain, Denies change in bowel habits, Denies coffee ground emesis, Denies early satiety, Denies excessive gas, Denies heartburn, Denies hematemesis, Denies hematochezia, Denies loss of appetite, D enies nausea, Denies vomiting Genitourinary: Denies dysuria, Denies flank pain, Denies kidney stones, Denies menorrhagia, Denies urgency, Denies urinary frequency Musculoskeletal: Denies gait dysfunction, Denies limitation of motion, Denies morning stiffness, Denies muscle cramps Integumentary: Denies rash, Denies wounds, Denies brittle nails, Denies change in hair/nails, Denies darkening of skin Neurological: Denies balance difficulties, Denies change in speech, Denies double vision, Denies gait dysfunction, Denies loss of vision, Denies motor disturbance, Denies numbness, Denies paralysis, Denies paresthesias, Denies seizures Psychiatric: Denies anxiety, Denies depression Endocrine: Denies excessive sweating, Denies excessive thirst, Denies high blood sugars, Denies palpitations Hematologic/Lymphatic: Denies easy bruising, Denies lymphadenopathy Social history Nonsmoker nondrinker lives with his has underlying dementia and does not drive Family history Mother at 98 from age-related changes Father at 72 had a stroke Has multiple siblings unknown medical history Has 6 children with no medical problems Physical exam - Constitutional General appearance: cooperative, no acute distress, comfortable on BiPAP - EENT Eyes: anicteric sclerae, PERRLA, normal appearance ENT: hearing grossly normal - Neck Neck: no lymphadenopathy, normal ROM, no other, no rigidity, no stridor, no thyromegaly - Respiratory Respiratory: bilateral: Decreased air entry with bilateral crackles, negative: diminished, dullness, rales, rhonchi - Cardiovascular Rhythm: regular Heart sounds: normal: S1, S2 Abnormal Heart Sounds: no systolic murmur, no diastolic murmur, no rub, no S3 G allop, no S4 Gallop, no click, no other - Gastrointestinal General gastrointestinal: normal bowel sounds, soft nontender - Integumentary Integumentary: no rash - Neurologic Neurologic: No gross motor or sensory deficit - Musculoskeletal Musculoskeletal: gait normal, strength equal bilaterally - Psychiatric Psychiatric: A&O x's 3, appropriate affect Assessment and plan #1 acute congestive heart failure ejection fraction not known echo ordered. Lasix 40 IV twice a day. Nitroglycerin drip for flash pulmonary edema. Blood pressure controlled continue watch hemodynamic status continue BiPAP for saturation less than 90%. #2 hypertensive urgency continue nitroglycerin drip continue Lasix 40 IV twice a day continue labetalol 100 twice a day. Cardiology consulted. #3 acute troponin elevation ACS cardiology consulted for EKG suggestive of left bundle branch block unclear if patient has ST elevation. Heparin drip to be continued #4 hyperlipidemia continue Lipitor 20 mg by mouth daily #5 type 2 diabetes hold Actos contraindicated NCHS to be discontinued on discharge. HbA1c ordered #6 chronic kidney disease stage III likely secondary to diabetic nephropathy no previous labs to compare. Avoid nephrotoxic agents #7 gout continue allopurinol #8 depression continue Zoloft at 25 mg by mouth daily #9 advanced dementia no recent or remote history watch for sund DVT prophylaxis on heparin drip CODE STATUS full code Disposition patient will need to be in the hospital for 1-2 inpatient Past Medical History Past Medical History: Dementia, Diabetes Mellitus, Hyperlipidemia, Hypertension History of Any Multi-Drug Resistant Organisms: None Reported Past Surgical History: No Surgical Hx Reported Past Psychological History: No Psychological Hx Reported Past Alcohol Use History: None Reported Past Drug Use History: None Reported Medications and Allergies Home Medications Medication Instructions Recorded Confirmed Type Atorvastatin [Lipitor] 20 mg PO HS 08/08/16 03/27/21 History Brinzolamide/Brimonidine Tart 1 drop RIGHT EYE AC-LUNCH 08/08/16 03/27/21 History [Simbrinza 1%-0.2% Eye Drops] Cyanocobalamin (Vitamin B-12) 1,000 mcg PO SUTUTHSA@2100 08/08/16 03/27/21 History [Vitamin B-12] Latanoprost [Xalatan 0.005%] 1 drop RIGHT EYE HS 08/08/16 03/27/21 History allopurinoL [Zyloprim] 300 mg PO DAILY 08/08/16 03/27/21 History Aspirin EC [Ecotrin Low Dose] 81 mg PO DAILY 03/27/21 03/27/21 History Cholecalciferol [Vitamin D3 (125 125 mcg PO HS 03/27/21 03/27/21 History Mcg = 5000 Iu)] Krill Oil 500 mg PO DAILY 03/27/21 03/27/21 History Labetalol [Trandate] 100 mg PO BID 03/27/21 03/27/21 History Pioglitazone [Actos] 15 mg PO DAILY 03/27/21 03/27/21 History Saw [place] 500 mg PO BID 03/27/21 03/27/21 History Sertraline HCl [Zoloft] 25 mg PO HS 03/27/21 03/27/21 History Allergies Allergy/AdvReac Type Severity Reaction Status Date / Time No Known Allergies Allergy Verified 03/27/21 08:47 Physical Exam Vitals: Vital Signs Pulse Resp BP Pulse Ox 03/27/21 11:15 80 20 163/92 100 03/27/21 10:20 86 18 161/96 100 03/27/21 09:12 76 18 162/90 96 03/27/21 07:49 93 184/97 100 03/27/21 07:40 111 H 22 187/118 100 Intake and Output 03/26/21 03/27/21 03/27/21 22:59 06:59 14:59 Other: Weight 67.132 kg Results CBC & Chem 7: 03/27/21 07:44 03/27/21 07:44 Labs: Abnormal Lab Results - Last 24 Hours (Table) 03/27/21 03/27/21 03/27/21 Range/Units 07:44 07:44 07:44 RBC 3.58 L (4.30-5.90) m/uL Hgb 11.2 L (13.0-17.5) gm/dL Hct 36.5 L (39.0-53.0) % MCV 101.9 H (80.0-100.0) fL MCHC 30.6 L (31.0-37.0) g/dL RDW 18.3 H (11.5-15.5) % Chloride 108 H (98-107) mmol/L BUN 21 H (9-20) mg/dL Creatinine 1.40 H (0.66-1.25) mg/dL Glucose 172 H (74-99) mg/dL Troponin I 0.056 H* (0.000-0.034) ng/mL
[2021-03-27] MEDS ORDERED: ONDANSETRON 4 MG/2 ML VIAL IVP PRN (13:29)
[2021-03-27] MEDS ORDERED: IPRATROPIUM-ALBUTEROL 3 ML NEB INHALATION PRN (13:29)
[2021-03-27] MEDS: HEPARIN SOD,PORK IN 0.45% NACL 25,000 UNIT in 0.45% NACL 1 250ML.BAG IV SCH (14:13)
[2021-03-27] MEDS: BRIMONIDINE TARTRATE 0.2% DROPS 5 ML BTL RIGHT EYE SCH (14:14)
[2021-03-27] MEDS: DORZOLAMIDE HCL 2% DROPS 10 ML BTL RIGHT EYE SCH (14:14)
[2021-03-27 20:41] LABS: Glucose,Whole Blood 106 mg/dL (75-99)
[2021-03-27] MEDS: ATORVASTATIN 20 MG TAB PO SCH (22:30)
[2021-03-27] MEDS: SERTRALINE 25 MG TAB PO SCH (22:30)
[2021-03-27] MEDS: LABETALOL 100 MG TAB PO SCH (22:31)
[2021-03-27] MEDS: LATANOPROST 0.005% OPHTH DROPS 2.5 ML BTL RIGHT EYE SCH (22:31)
[2021-03-27] MEDS: FUROSEMIDE 10 MG/ML 4 ML VIAL IV SCH (22:31)
[2021-03-28 06:00] LABS: Glucose,Whole Blood 110 mg/dL (75-99)
[2021-03-28 08:24] LABS: Anisocytosis Slight; Basophils % (A) 0 %; Eosinophils # (A) 0.3 k/uL (0-0.7); Eosinophils % (A) 4 %; HCT 32.8 % (39.0-53.0); HGB 10.1 gm/dL (13.0-17.5); Hypochromasia Marked; Lymphocytes # (A) 1.4 k/uL (1.0-4.8); Lymphocytes % (A) 22 %; MCH 31.1 pg (25.0-35.0); MCHC 30.8 g/dL (31.0-37.0); MCV 100.9 fL (80.0-100.0); Macrocytosis Moderate; Mean Platelet Volume 7.7; Monocytes # (A) 0.4 k/uL (0-1.0); Monocytes % (A) 7 %; Neutrophils # (A) 4.2 k/uL (1.3-7.7); Neutrophils % (A) 65 %; Platelet Count 205 k/uL (150-450); RBC 3.25 m/uL (4.30-5.90); RDW 18.3 % (11.5-15.5); WBC 6.4 k/uL (3.8-10.6)
[2021-03-28] MEDS: LABETALOL 100 MG TAB PO SCH (09:43)
[2021-03-28] MEDS: ASPIRIN 81 MG PO SCH (09:50)
[2021-03-28] MEDS: LOSARTAN 25 MG TAB PO SCH (09:50)
[2021-03-28] MEDS: METOPROLOL TARTRATE 50 MG TAB PO SCH ×2 (09:50→21:41)
[2021-03-28] MEDS: FUROSEMIDE 10 MG/ML 4 ML VIAL IV SCH ×2 (09:50→21:41)
[2021-03-28] MEDS: allopurinoL 300 MG TAB PO SCH (09:50)
--- NOTE | 2021-03-28 11:13 | P.PN ---
Subjective Progress Note Date: 03/28/21 HISTORY OF PRESENT ILLNESS This is an 85-year-old male with past medical history of dementia, hypertension, diabetes comes in with increased shortness of breath associated with headache for 1 day. Patient is stable at baseline does not get admitted to the hospital. at bedside is able to provide history. The patient is noted to be comfortable currently on BiPAP.Patient was noted to be in severe acute respiratory distress and brought to the emergency room. His tachycardia to Heart tachycardic hypertensive and hypoxic. Vitals reviewed patient pulse was 111 on admission was 222 blood pressure 187/118. EKG obtained as it is with sinus rhythm with left bundle branch block rate of 95. Patient's blood pressure improved to 160/80 and breathing improved while on BiPAP. He was given nitroglycerin drip. A dose of Lasix was given in the ER as well. Chest x-ray does suggest congestive heart failure. Labs are reviewed hemoglobin 11.1 hematocrit 101, sodium 140 chloride 108 BUN 21 creatinine 1.4 troponin elevated to 0.056 seconds troponin 0.0310 BNP 4780 03/28: Patient's breathing status is improved today. He is currently on 3 L high flow nasal cannula with pulse ox of 100%. Blood pressure 155/62, heart rate 83, afebrile. Repeat blood work reveals hemoglobin 10.1. Patient remains on heparin drip for elevated troponins and scheduled to see cardiology today. Echocardiogram has been obtained and report is pending. ROS Constitutional: Denies chills, Denies fever, Denies lethargy, Denies malaise, Denies poor appetite, Denies weakness, Denies weight loss Eyes: denies decreased vision, denies diplopia, denies discharge, denies pain Ears: deny: decreased hearing Ears, nose, mouth and throat: Denies dental pain, Denies headache, Denies nasal discharge, Denies nose pain Cardiovascular: Denies chest pain, Denies decreased exercise tolerance, Denies edema, Denies high blood pressure, Denies irregular heart beat, Denies palpitat ions, Denies paroxysmal nocturnal dyspnea, Denies rapid heart beat, endorses ness of breath Respiratory: Denies congestion, Denies cough, Denies cough with sputum, endorses dyspnea-improving, Denies home oxygen, Denies wheezing Gastrointestinal: Denies abdominal pain, Denies change in bowel habits, Denies coffee ground emesis, Denies early satiety, Denies excessive gas, Denies heartburn, Denies hematemesis, Denies hematochezia, Denies loss of appetite, Denies nausea, Denies vomiting Genitourinary: Denies dysuria, Denies flank pain, Denies kidney stones, Denies menorrhagia, Denies urgency, Denies urinary frequency Musculoskeletal: Denies gait dysfunction, Denies limitation of motion, Denies m orning stiffness, Denies muscle cramps Integumentary: Denies rash, Denies wounds, Denies brittle nails, Denies change in hair/nails, Denies darkening of skin Neurological: Denies balance difficulties, Denies change in speech, Denies double vision, Denies gait dysfunction, Denies loss of vision, Denies motor disturbance, Denies numbness, Denies paralysis, Denies paresthesias, Denies seizures Psychiatric: Denies anxiety, Denies depression Endocrine: Denies excessive sweating, Denies excessive thirst, Denies high blood sugars, Denies palpitations Hematologic/Lymphatic: Denies easy bruising, Denies lymphadenopathy PHYSICAL EXAMINATION Gen: This is an 85-year-old [place] man, resting in bed and appears to be comfortable. No respiratory distress is noted. HEENT: Head is atraumatic, normocephalic. Pupils equal, round. Sclerae is anicteric. NECK: Supple. No JVD. No lymphadenopathy. No thyromegaly. LUNGS: Decreased bilaterally with bilateral crackles. No intercostal retractions. HEART: Regular rate and rhythm. No murmur. ABDOMEN: Soft. Bowel sounds are present. No masses. No tenderness. EXTREMITIES: No pedal edema. No calf tenderness. NEUROLOGICAL: Patient is awake, alert and oriented to person. She able to move all extremities, no focal neuro deficits. ASSESSMENT AND PLAN #1 acute hypoxic respiratory failure secondary to acute possible systolic heart failure ejection fraction not known echo report is pending. Lasix 40 IV twice a day, monitor I&O and daily weights. #2 hypertensive urgency continue nitroglycerin drip continue Lasix 40 IV twice a day continue labetalol 100 twice a day. Cardiology consulted. #3 acute troponin elevation ACS cardiology consulted for EKG suggestive of left bundle branch block unclear if patient has ST elevation. Heparin drip to be continued #4 hyperlipidemia continue Lipitor 20 mg by mouth daily #5 type 2 diabetes hold Actos contraindicated NCHS to be discontinued on discharge. HbA1c 5.7 #6 chronic kidney disease stage III likely secondary to diabetic nephropathy no previous labs to compare. Avoid nephrotoxic agents #7 chronic gout continue allopurinol #8 recurrent depression continue Zoloft at 25 mg by mouth daily #9 advanced dementia no recent or remote history watch for DVT prophylaxis on heparin drip CODE STATUS full code DISCHARGE PLAN TBD. Consults with PT and OT added. Impression and plan of care have been directed as dictated by the signing physician. Ale Camacho nurse practitioner acting as scribe for signing physician. Objective - Vital Signs Vital signs: Vital Signs Temp 98.0 F 03/28/21 04:00 Pulse 83 03/28/21 04:00 Resp 18 03/28/21 04:00 BP 155/62 03/28/21 04:00 Pulse Ox 100 03/28/21 04:00 Intake & Output 03/27/21 03/28/21 03/28/21 18:59 06:59 18:59 Intake Total 75.726 0 Balance 75.726 0 Weight 67.132 kg 62 kg Intake: Intake, IV Titration 75.726 Amount Heparin Sod,Pork in 0.45% 75.726 NaCl 25,000 unit In 0.45 % NaCl 1 250ml.bag @ 12 UNITS/KG/HR 8.056 mls/hr IV .Q24H SHA Rx#: [id number] Oral 0 Other: Voiding Method Diaper Incontinent # Voids 1 - Labs CBC & Chem 7: 03/28/21 07:37 03/27/21 07:44 Labs: Abnormal Lab Results - Last 24 Hours (Table) 03/27/21 03/27/21 03/27/21 Range/Units 11:30 14:27 20:38 RBC (4.30-5.90) m/uL Hgb (13.0-17.5) gm/dL Hct (39.0-53.0) % MCV (80.0-100.0) fL MCHC (31.0-37.0) g/dL RDW (11.5-15.5) % APTT (22.0-30.0) sec POC Glucose (mg/dL) 106 H (75-99) mg/dL Troponin I 0.231 H* 0.322 H* (0.000-0.034) ng/mL 03/27/21 03/28/21 03/28/21 Range/Units 20:45 05:57 07:37 RBC 3.25 L (4.30-5.90) m/uL Hgb 10.1 L (13.0-17.5) gm/dL Hct 32.8 L (39.0-53.0) % MCV 100.9 H (80.0-100.0) fL MCHC 30.8 L (31.0-37.0) g/dL RDW 18.3 H (11.5-15.5) % APTT 66.4 H (22.0-30.0) sec POC Glucose (mg/dL) 110 H (75-99) mg/dL Troponin I (0.000-0.034) ng/mL 03/28/21 Range/Units 07:37 RBC (4.30-5.90) m/uL Hgb (13.0-17.5) gm/dL Hct (39.0-53.0) % MCV (80.0-100.0) fL MCHC (31.0-37.0) g/dL RDW (11.5-15.5) % APTT 45.0 H (22.0-30.0) sec POC Glucose (mg/dL) (75-99) mg/dL Troponin I (0.000-0.034) ng/mL
[2021-03-28 11:15] LABS: Glucose,Whole Blood 119 mg/dL (75-99)
--- NOTE | 2021-03-28 11:57 | P.CRDCN ---
History of Present Illness Consult date: 03/28/21 History of present illness: HISTORY OF PRESENT ILLNESS: This is a 85-year-old male with a past medical history significant for hypertension, hyperlipidemia, diabetes, and dementia. 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 We have been asked to see the patient in consultation for congestive heart failure. Patient examined at the bedside. Patient is currently confused and is unable to provide much HPI. There is no family present. The brissa ellen is unsure why he was brought to the hospital. He denies any shortness of breath. He denies any chest pain. According to the emergency room physician note, the patient was brought into the hospital secondary to shortness of breath and respiratory distress. The patient was initially placed on BiPAP. He is currently on a nasal cannula. The patient was found to have abnormal troponins and was started on IV heparin. The patient was also found to be in acute congestive heart failure and was started on IV Lasix. * EKG reveals sinus rhythm with left bundle branch block. No previous EKG a vailable for comparison. * Chest xray cardiomegaly with perihilar and diffuse mid and lower lung airspace disease. Possible CHF with pulmonary edema * Laboratory data: WBC 6.4. Hemoglobin 10.1. Platelet count 205. Sodium 140. Potassium 4.2. BUN 21. Creatinine 1.40. Troponin 0.056. 0.231. 0.322. ProBNP 4780. * Current home cardiac medications include aspirin 81 mg daily, labetalol 100 mg twice a day, Lipitor 20 mg at night * Most recent echocardiogram obtained in 2019 revealing ejection fraction 55-60% REVIEW OF SYSTEMS: At the time of my exam: Unable to obtain thorough review of systems secondary to altered mental status PHYSICAL EXAM: VITAL SIGNS: Reviewed. GENERAL: Well-developed in no acute distress. HEENT: Head is normocephalic. Pupils are equal, round. Sclerae anicteric. Mucous membranes of the mouth are moist. Neck supple. No JVD or thyromegaly LUNGS: Respirations even and unlabored. Lungs diminished with bibasilar rales HEART: Regular rate and rhythm. S1 and S2 heard. ABDOMEN: Soft. Nondistended. Nontender. EXTREMITIES: Normal range of motion. No clubbing or cyanosis. Peripheral pulses intact. No lower extremity edema NEUROLOGIC: Awake and alert. Oriented x 1. ASSESSMENT: Acute congestive heart failure, type unknown, echo pending Cardiomyopathy, etiology unclear Non-STEMI Acute hypoxic respiratory failure Hypertensive urgency, improving Acute kidney injury History of hypertension Hyperlipidemia Diabetes PLAN: Preliminary echocardiogram reveals ejection fraction 40% with global hypokinesis. Await final report Continue IV heparin Continue IV Lasix Daily weights Accurate I&O Monitor kidney function Discontinue labetalol Begin metoprolol tartrate 50 mg twice a day Add losartan 25 mg daily Continue with medical management at this time Further recommendations pending patient course Nurse practitioner note has been reviewed by physician. Signing provider agrees with the documented findings, assessment, and plan of care. Past Medical History Past Medical History: Dementia, Diabetes Mellitus, Hyperlipidemia, Hypertension Additional Past Medical History / Comment(s): Type 2 diabetes . poss. Prostate cancer History of Any Multi-Drug Resistant Organisms: None Reported Past Surgical History: No Surgical Hx Reported Additional Past Surgical History / Comment(s): cataract on left eye Past Anesthesia/Blood Transfusion Reactions: No Reported Reaction Past Psychological History: No Psychological Hx Reported Smoking Status: Never smoker Past Alcohol Use History: None Reported Past Drug Use History: None Reported Medications and Allergies Home Medications Medication Instructions Recorded Confirmed Type Atorvastatin [Lipitor] 20 mg PO HS 08/08/16 03/27/21 History Brinzolamide/Brimonidine Tart 1 drop RIGHT EYE AC-LUNCH 08/08/16 03/27/21 History [Simbrinza 1%-0.2% Eye Drops] Cyanocobalamin (Vitamin B-12) 1,000 mcg PO SUTUTHSA@2100 08/08/16 03/27/21 History [Vitamin B-12] Latanoprost [Xalatan 0.005%] 1 drop RIGHT EYE HS 08/08/16 03/27/21 History allopurinoL [Zyloprim] 300 mg PO DAILY 08/08/16 03/27/21 History Aspirin EC [Ecotrin Low Dose] 81 mg PO DAILY 03/27/21 03/27/21 History Cholecalciferol [Vitamin D3 (125 125 mcg PO HS 03/27/21 03/27/21 History Mcg = 5000 Iu)] Krill Oil 500 mg PO DAILY 03/27/21 03/27/21 History Labetalol [Trandate] 100 mg PO BID 03/27/21 03/27/21 History Pioglitazone [Actos] 15 mg PO DAILY 03/27/21 03/27/21 History Saw [place] 500 mg PO BID 03/27/21 03/27/21 History Sertraline HCl [Zoloft] 25 mg PO HS 03/27/21 03/27/21 History Allergies Allergy/AdvReac Type Severity Reaction Status Date / Time No Known Allergies Allergy Verified 03/27/21 08:47 Physical Exam Vitals: Vital Signs Temp Pulse Pulse Resp BP BP Pulse Ox 03/28/21 04:00 98.0 F 83 18 155/62 100 03/28/21 02:00 101 H 18 03/28/21 00:00 98.3 F 101 H 18 162/72 99 03/27/21 22:04 97.9 F 100 18 165/93 100 03/27/21 20:00 98.4 F 91 18 169/93 100 03/27/21 18:00 91 22 125/93 100 03/27/21 17:35 101 H 22 100 03/27/21 16:00 64 18 169/84 100 03/27/21 14:15 65 18 165/78 100 03/27/21 12:28 79 20 165/79 100 Intake and Output 03/27/21 03/28/21 03/28/21 22:59 06:59 14:59 Intake Total 75.726 0 Balance 75.726 0 Intake: Intake, IV Titration 75.726 Amount Heparin Sod,Pork in 0.45% 75.726 NaCl 25,000 unit In 0.45 % NaCl 1 250ml.bag @ 12 UNITS/KG/HR 8.056 mls/hr IV .Q24H [facility] Rx#: [id number] Oral 0 Other: Voiding Method Diaper Incontinent # Voids 1 Weight 67.132 kg 62 kg Results 03/28/21 07:37 03/27/21 07:44 Cardiac Enzymes 03/27/21 03/27/21 Range/Units 11:30 14:27 Troponin I 0.231 H* 0.322 H* (0.000-0.034) ng/mL Coagulation 03/27/21 03/28/21 Range/Units 20:45 07:37 APTT 66.4 H 45.0 H (22.0-30.0) sec CBC 03/28/21 Range/Units 07:37 WBC 6.4 (3.8-10.6) k/uL RBC 3.25 L (4.30-5.90) m/uL Hgb 10.1 L (13.0-17.5) gm/dL Hct 32.8 L (39.0-53.0) % Plt Count 205 (150-450) k/uL Current Medications Generic Name Dose Route Start Last Admin Trade Name Freq PRN Reason Stop Dose Admin Acetaminophen 650 mg 03/27/21 08:32 Acetaminophen Tab 325 Mg Tab PO Q6HR PRN Mild Pain or Fever > 100.5 Acetaminophen 650 mg 03/27/21 13:29 Acetaminophen Tab 325 Mg Tab PO Q6HR PRN Fever and/ or Pain Albuterol/Ipratropium 3 ml 03/27/21 13:29 Ipratropium-Albuterol 3 Ml Neb INHALATION RT-QID PRN sob Allopurinol 300 mg 03/28/21 09:00 03/28/21 09:50 Allopurinol 300 Mg Tab PO 300 mg DAILY SHA Administration Aspirin 81 mg 03/28/21 09:00 03/28/21 09:50 Aspirin 81 Mg PO 81 mg DAILY SHA Administration Atorvastatin Calcium 20 mg 03/27/21 21:00 03/27/21 22:30 Atorvastatin 20 Mg Tab PO 20 mg HS SHA Administration Brimonidine Tartrate 1 drops 03/27/21 13:30 03/27/21 14:14 Brimonidine Tartrate 0.2% Drops 5 Ml Btl RIGHT EYE Not Given AC-LUNCH SHA Dorzolamide HCl 1 drops 03/27/21 13:30 03/27/21 14:14 Dorzolamide Hcl 2% Drops 10 Ml Btl RIGHT EYE Not Given AC-LUNCH SHA Furosemide 40 mg 03/27/21 21:00 03/28/21 09:50 Furosemide 10 Mg/Ml 4 Ml Vial IV 40 mg Q12HR SHA Administration Heparin Sodium (Porcine) 0 unit 03/27/21 12:31 Heparin Sodium 1,000 Un/Ml (10ml Vl) IV PER PROTOCOL PRN Low PTT Protocol Heparin Sodium/Sodium Chloride 250 mls @ 8.056 mls/hr 03/27/21 12:45 03/27/21 23:37 25,000 unit/ Sodium Chloride IV 10 units/kg/hr .Q24H [facility] 6.713 mls/hr Titration Protocol 12 UNITS/KG/HR Latanoprost 1 drops 03/27/21 21:00 03/27/21 22:31 Latanoprost 0.005% Ophth Drops 2.5 Ml Btl RIGHT EYE 1 drops HS SHA Administration Losartan Potassium 25 mg 03/28/21 09:45 03/28/21 09:50 Losartan 25 Mg Tab PO 25 mg DAILY SHA Administration Metoprolol Tartrate 50 mg 03/28/21 09:45 03/28/21 09:50 Metoprolol Tartrate 50 Mg Tab PO 50 mg BID SHA Administration Naloxone HCl 0.2 mg 03/27/21 08:32 Naloxone 0.4 Mg/Ml 1 Ml Vial IV Q2M PRN Opioid Reversal Ondansetron HCl 4 mg 03/27/21 13:29 Ondansetron 4 Mg/2 Ml Vial IVP Q6HR PRN Nausea And Vomiting Sertraline HCl 25 mg 03/27/21 21:00 03/27/21 22:30 Sertraline 25 Mg Tab PO 25 mg HS SHA Administration Intake and Output 03/27/21 03/28/21 03/28/21 22:59 06:59 14:59 Intake Total 75.726 0 Balance 75.726 0 Intake: Intake, IV Titration 75.726 Amount Heparin Sod,Pork in 0.45% 75.726 NaCl 25,000 unit In 0.45 % NaCl 1 250ml.bag @ 12 UNITS/KG/HR 8.056 mls/hr IV .Q24H [facility] Rx#: [id number] Oral 0 Other: Voiding Method Diaper Incontinent # Voids 1 Weight 67.132 kg 62 kg 03/28/21 07:37 03/27/21 07:44
[2021-03-28] MEDS: BRIMONIDINE TARTRATE 0.2% DROPS 5 ML BTL RIGHT EYE SCH (12:42)
[2021-03-28] MEDS: DORZOLAMIDE HCL 2% DROPS 10 ML BTL RIGHT EYE SCH (12:43)
--- NOTE | 2021-03-28 12:51 | ECHOF ---
Referral Reason:CHF MEASUREMENTS -------- HEIGHT: 172.7 cm WEIGHT: 61.7 kg BP: 155/62 RVIDd: 2.6 cm (< 3.3) IVSd: 1.2 cm (0.6 - 1.1) LVIDd: 3.7 cm (3.9 - 5.3) LVPWd: 1.2 cm (0.6 - 1.1) IVSs: 1.7 cm LVIDs: 2.7 cm LVPWs: 1.9 cm LA Diam: 3.2 cm (2.7 - 3.8) LAESV Index (A-L): 28.98 ml/m Ao Diam: 3.2 cm (2.0 - 3.7) AV Cusp: 1.4 cm (1.5 - 2.6) MV EXCURSION: 12.039 mm (> 18.000) MV EF SLOPE: 43 mm/s (70 - 150) EPSS: 1.3 cm MV E Abdirashid: 1.11 m/s MV DecT: 121 ms MV A Abdirashid: 1.19 m/s MV E/A Ratio: 0.93 AV maxP.91 mmHg AV meanP.09 mmHg AR PHT: 497 ms RAP: 5.00 mmHg RVSP: 41.32 mmHg FINDINGS -------- Sinus rhythm. This was a technically adequate study. The left ventricular size is normal. There is borderline concentric left ventricular hypertrophy. Overall left ventricular systolic function is mildly impaired with, an EF between 45 - 50 %. The right ventricle is normal in size. Normal LA size by volume 22+/-6 ml/m2. The right atrial size is normal. Interatrial and interventricular septum intact. There is mild aortic valve sclerosis. There is mild aortic regurgitation. There is mild aortic st enosis present. Peak/mean gradient across the Aortic Valve is 18.91mmHg / 10.09mmHg. Mild mitral annular calcification present. Mild mitral regurgitation is present. The tricuspid valve appears structurally normal. Mild tricuspid regurgitation present. There is m ild pulmonary hypertension. The right ventricular systolic pressure, as measured by Doppler, is 41. 32mmHg. The pulmonic valve was not well visualized. The aortic root size is normal. Normal inferior vena cava with normal inspiratory collapse consistent with estimated right atrial pre ssure of 5 mmHg. There is no pericardial effusion. CONCLUSIONS -------- 1. There is borderline concentric left ventricular hypertrophy. 2. Overall left ventricular systolic function is mildly impaired with, an EF between 45 - 50 %. 3. There is mild aortic valve sclerosis. 4. There is mild aortic regurgitation. 5. There is mild aortic stenosis present. 6. Peak/mean gradient across the Aortic Valve is 18.91mmHg / 10.09mmHg. 7. Mild mitral regurgitation is present. 8. Mild tricuspid regurgitation present. 9. There is mild pulmonary hypertension. 10. There is no pericardial effusion. [employer]: Jenna Frausto, ZOILACS
[2021-03-28 14:05] VITALS: BMI 23.4
[2021-03-28] MEDS: HEPARIN SOD,PORK IN 0.45% NACL 25,000 UNIT in 0.45% NACL 1 250ML.BAG IV SCH (15:28)
[2021-03-28 16:19] LABS: Glucose,Whole Blood 108 mg/dL (75-99)
[2021-03-28 20:03] LABS: Glucose,Whole Blood 143 mg/dL (75-99)
[2021-03-28] MEDS: SERTRALINE 25 MG TAB PO SCH (21:41)
[2021-03-28] MEDS: LATANOPROST 0.005% OPHTH DROPS 2.5 ML BTL RIGHT EYE SCH (21:41)
[2021-03-28] MEDS: ATORVASTATIN 20 MG TAB PO SCH (21:41)
[2021-03-29] MEDS: HEPARIN SOD,PORK IN 0.45% NACL 25,000 UNIT in 0.45% NACL 1 250ML.BAG IV SCH (00:22)
[2021-03-29 06:20] LABS: Glucose,Whole Blood 110 mg/dL (75-99)
[2021-03-29] MEDS: METOPROLOL TARTRATE 50 MG TAB PO SCH ×2 (08:20→20:53)
[2021-03-29] MEDS: ASPIRIN 81 MG PO SCH (08:20)
[2021-03-29] MEDS: LOSARTAN 25 MG TAB PO SCH (08:20)
[2021-03-29] MEDS: allopurinoL 300 MG TAB PO SCH (08:20)
[2021-03-29] MEDS: FUROSEMIDE 10 MG/ML 4 ML VIAL IV SCH (08:20)
[2021-03-29] MEDS: FUROSEMIDE 40 MG TAB PO SCH (09:32)
[2021-03-29] MEDS: DORZOLAMIDE HCL 2% DROPS 10 ML BTL RIGHT EYE SCH (11:26)
[2021-03-29] MEDS: BRIMONIDINE TARTRATE 0.2% DROPS 5 ML BTL RIGHT EYE SCH (11:27)
--- NOTE | 2021-03-29 11:44 | P.PN ---
Subjective Progress Note Date: 03/29/21 HISTORY OF PRESENT ILLNESS: This is a 85-year-old male with a past medical history significant for hypertension, hyperlipidemia, diabetes, and dementia. 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 We have been asked to see the patient in consultation for congestive heart failure. Patient examined at the bedside. Patient is currently confused and is unable to provide much HPI. There is no family present. The patient is unsure why he was brought to the hospital. He denies any shortness of breath. He denies any chest pain. According to the emergency room physician note, the patient was brought into the hospital secondary to shortness of breath and respiratory distress. The patient was initially placed on BiPAP. He is currently on a nasal cannula. The patient was found to have abnormal troponins and was started on IV heparin. The patient was also found to be in acute congestive heart failure and was started on IV Lasix. * EKG reveals sinus rhythm with left bundle branch block. No previous EKG available for comparison. * Chest xray cardiomegaly with perihilar and diffuse mid and lower lung airspace disease. Possible CHF with pulmonary edema * Laboratory data: WBC 6.4. Hemoglobin 10.1. Platelet count 205. Sodium 140. Potassium 4.2. BUN 21. Creatinine 1.40. Troponin 0.056. 0.231. 0.322. ProBNP 4780. * Current home cardiac medications include aspirin 81 mg daily, labetalol 100 mg twice a day, Lipitor 20 mg at night * Most recent echocardiogram obtained in 2019 revealing ejection fraction 55-60% 03/29/2021 Patient examined this morning at the bedside. Patients daughter is present. Patient denies chest pain or pressure. He denies shortness of breath. He remains on IV heparin. Echocardiogram completed revealing ejection fraction 45- 50%, mild aortic regurgitation, mild aortic stenosis, mild mitral regurgitation, and mild tricuspid regurgitation PHYSICAL EXAM: VITAL SIGNS: Reviewed. GENERAL: Well-developed in no acute distress. HEENT: Head is normocephalic. Pupils are equal, round. Sclerae anicteric. Mucous membranes of the mouth are moist. Neck supple. No JVD or thyromegaly LUNGS: Respirations even and unlabored. Lungs diminished. HEART: Regular rate and rhythm. S1 and S2 heard. ABDOMEN: Soft. Nondistended. Nontender. EXTREMITIES: Normal range of motion. No clubbing or cyanosis. Peripheral pulses intact. No lower extremity edema NEUROLOGIC: Awake and alert. Oriented x 1. ASSESSMENT: Acute congestive heart failure with preserved ejection fraction, borderline or intermediate EF Mild cardiomyopathy, etiology unclear Non-STEMI Acute hypoxic respiratory failure Hypertensive urgency, improving Acute kidney injury History of hypertension Hyperlipidemia Diabetes PLAN: Continue current cardiac medications Discontinue IV Lasix. Begin oral Lasix 40 mg daily Discontinue IV heparin Continue with medical management at this time Further recommendations pending patient course Nurse practitioner note has been reviewed by physician. Signing provider agrees with the documented findings, assessment, and plan of care. Objective - Vital Signs Vital signs: Vital Signs Temp 98.4 F 03/29/21 08:00 Pulse 59 L 03/29/21 08:00 Resp 17 03/29/21 08:00 BP 151/64 03/29/21 08:00 Pulse Ox 100 03/29/21 08:00 Intake & Output 03/28/21 03/29/21 03/29/21 18:59 06:59 18:59 Intake Total 300 166.147 61.536 Output Total 72 Balance 300 94.147 61.536 Weight 62 kg Intake: Intake, IV Titration 166.147 61.536 Amount Heparin Sod,Pork in 0.45% 166.147 61.536 NaCl 25,000 unit In 0.45 % NaCl 1 250ml.bag @ 12 UNITS/KG/HR 8.056 mls/hr IV .Q24H [facility] Rx#: [id number] Oral 300 Output: Urine 50 Post Void Residual 22 Other: Voiding Method Diaper Diaper Diaper Incontinent Incontinent Incontinent # Voids 3 2 # Bowel Movements 0 - Labs CBC & Chem 7: 03/28/21 07:37 03/27/21 07:44 Labs: Abnormal Lab Results - Last 24 Hours (Table) 03/28/21 03/28/21 03/29/21 Range/Units 16:16 19:59 06:07 APTT (22.0-30.0) sec POC Glucose (mg/dL) 108 H 143 H 110 H (75-99) mg/dL 03/29/21 Range/Units 07:49 APTT 43.0 H (22.0-30.0) sec POC Glucose (mg/dL) (75-99) mg/dL
[2021-03-29 12:02] LABS: Glucose,Whole Blood 144 mg/dL (75-99)
--- NOTE | 2021-03-29 12:31 | P.PN ---
Subjective Progress Note Date: 03/29/21 HISTORY OF PRESENT ILLNESS This is an 85-year-old male with past medical history of dementia, hypertension, diabetes comes in with increased shortness of breath associated with headache for 1 day. Patient is stable at baseline does not get admitted to the hospital. at bedside is able to provide history. The patient is noted to be comfortable currently on BiPAP.Patient was noted to be in severe acute respiratory distress and brought to the emergency room. His tachycardia to Heart tachycardic hypertensive and hypoxic. Vitals reviewed patient pulse was 111 on admission was 222 blood pressure 187/118. EKG obtained as it is with sinus rhythm with left bundle branch block rate of 95. Patient's blood pressure improved to 160/80 and breathing improved while on BiPAP. He was given nitroglycerin drip. A dose of Lasix was given in the ER as well. Chest x-ray does suggest congestive heart failure. Labs are reviewed hemoglobin 11.1 hematocrit 101, sodium 140 chloride 108 BUN 21 creatinine 1.4 troponin elevated to 0.056 seconds troponin 0.0310 BNP 4780 03/28: Patient's breathing status is improved today. He is currently on 3 L high flow nasal cannula with pulse ox of 100%. Blood pressure 155/62, heart rate 83, afebrile. Repeat blood work reveals hemoglobin 10.1. Patient remains on heparin drip for elevated troponins and scheduled to see cardiology today. Echocardiogram has been obtained and report is pending. 03/29: Patient denies any new concerns overnight, patient's nurse does not have any new concerns. Patient remains pleasantly confused. Cardiology has evaluated this morning and transition IV Lasix to oral and discontinued IV heparin. Patient's daughter is at bedside and all questions have been answered. Echocardiogram reveals EF of 45-50%, mild aortic regurgitation, mild aortic stenosis, mild mitral regurgitation, mild tricuspid regurgitation. Plan is for discharge home tomorrow. ROS Constitutional: Denies chills, Denies fever, Denies lethargy, Denies malaise, Denies poor appetite, Denies weakness, Denies weight loss Eyes: denies decreased vision, denies diplopia, denies discharge, denies pain Ears: deny: decreased hearing Ears, nose, mouth and throat: Denies dental pain, Denies headache, Denies nasal discharge, Denies nose pain Cardiovascular: Denies chest pain, Denies decreased exercise tolerance, Denies edema, Denies high blood pressure, Denies irregular heart beat, Denies palpitations, Denies paroxysmal nocturnal dyspnea, Denies rapid heart beat, endorses ness of breath Respiratory: Denies congestion, Denies cough, Denies cough with sputum, endorses dyspnea-improving, Denies home oxygen, Denies wheezing Gastrointestinal: Denies abdominal pain, Denies change in bowel habits, Denies coffee ground emesis, Denies hematemesis, Denies hematochezia, Denies loss of appetite, Denies nausea, Denies vomiting Genitourinary: Denies dysuria, Denies flank pain, Denies kidney stones, Denies menorrhagia, Denies urgency, Denies urinary frequency Musculoskeletal: Denies gait dysfunction, Denies limitation of motion, Denies muscle cramps Integumentary: Denies rash, Denies wounds, Denies brittle nails, Denies change in hair/nails, Denies darkening of skin Neurological: Denies balance difficulties, Denies change in speech, Denies double vision, Denies gait dysfunction, Denies loss of vision, Denies motor disturbance, Denies numbness, Denies paralysis, Denies paresthesias, Denies seizures Psychiatric: Denies anxiety, Denies depression Endocrine: Denies excessive sweating, Denies excessive thirst, Denies high blood sugars Hematologic/Lymphatic: Denies easy bruising, Denies lymphadenopathy PHYSICAL EXAMINATION Gen: This is an 85-year-old English man, resting in bed and appears to be comfortable. No respiratory distress is noted. HEENT: Head is atraumatic, normocephalic. Pupils equal, round. Sclerae is anicteric. NECK: Supple. No JVD. No lymphadenopathy. No thyromegaly. LUNGS: Decreased bilaterally with bilateral crackles. No intercostal retractions. HEART: Regular rate and rhythm. No murmur. ABDOMEN: Soft. Bowel sounds are present. No masses. No tenderness. EXTREMITIES: No pedal edema. No calf tenderness. NEUROLOGICAL: Patient is awake, alert and oriented to person. She able to move all extremities, no focal neuro deficits. ASSESSMENT AND PLAN #1 acute hypoxic respiratory failure secondary to acute possible systolic heart failure ejection fraction not known echo report is pending. Lasix 40 IV twice a day transition to oral, monitor I&O and daily weights. #2 hypertensive urgency. Continue Lasix 40 mg daily, Lopressor 50 mg twice daily. Cardiology consult appreciated. #3 acute troponin elevation [facility] cardiology consulted for EKG suggestive of left bundle branch block unclear if patient has ST elevation. Heparin drip is continued #4 hyperlipidemia continue Lipitor 20 mg by mouth daily #5 type 2 diabetes hold Actos contraindicated N[facility]S to be discontinued on discharge. HbA1c 5.7 #6 chronic kidney disease stage III likely secondary to diabetic nephropathy no previous labs to compare. Avoid nephrotoxic agents #7 chronic gout continue allopurinol #8 recurrent depression continue Zoloft at 25 mg by mouth daily #9 advanced dementia no recent or remote history watch for DVT prophylaxis on heparin subcu CODE STATUS full code DISCHARGE PLAN Return home with [facility] on Sunday. Impression and plan of care have been directed as dictated by the signing phys icibryan. Ael Camacho nurse practitioner acting as scribe for signing physician. Objective - Vital Signs Vital signs: Vital Signs Temp 98.4 F 03/29/21 08:00 Pulse 59 L 03/29/21 08:00 Resp 17 03/29/21 08:00 BP 151/64 03/29/21 08:00 Pulse Ox 100 03/29/21 08:00 Intake & Output 03/28/21 03/29/21 03/29/21 18:59 06:59 18:59 Intake Total 300 166.147 61.536 Output Total 72 Balance 300 94.147 61.536 Weight 62 kg Intake: Intake, IV Titration 166.147 61.536 Amount Heparin Sod,Pork in 0.45% 166.147 61.536 NaCl 25,000 unit In 0.45 % NaCl 1 250ml.bag @ 12 UNITS/KG/HR 8.056 mls/hr IV .Q24H [facility] Rx#: [id number] Oral 300 Output: Urine 50 Post Void Residual 22 Other: Voiding Method Diaper Diaper Diaper Incontinent Incontinent Incontinent # Voids 3 2 # Bowel Movements 0 - Labs CBC & Chem 7: 03/28/21 07:37 03/27/21 07:44 Labs: Abnormal Lab Results - Last 24 Hours (Table) 03/28/21 03/28/21 03/28/21 Range/Units 11:12 16:16 19:59 APTT (22.0-30.0) sec POC Glucose (mg/dL) 119 H 108 H 143 H (75-99) mg/dL 03/29/21 03/29/21 Range/Units 06:07 07:49 APTT 43.0 H (22.0-30.0) sec POC Glucose (mg/dL) 110 H (75-99) mg/dL
[2021-03-29] MEDS: HEPARIN SODIUM,PORCINE/PF 5,000 UNIT/0.5 ML SYRINGE SQ SCH ×2 (15:48→23:39)
[2021-03-29 16:37] LABS: Glucose,Whole Blood 96 mg/dL (75-99)
[2021-03-29 20:09] LABS: Glucose,Whole Blood 156 mg/dL (75-99)
[2021-03-29] MEDS: ATORVASTATIN 20 MG TAB PO SCH (20:52)
[2021-03-29] MEDS: SERTRALINE 25 MG TAB PO SCH (20:53)
[2021-03-29] MEDS: LATANOPROST 0.005% OPHTH DROPS 2.5 ML BTL RIGHT EYE SCH (20:53)
[2021-03-30 06:13] LABS: Glucose,Whole Blood 105 mg/dL (75-99)
[2021-03-30] MEDS: METOPROLOL TARTRATE 50 MG TAB PO SCH (08:07)
[2021-03-30] MEDS: allopurinoL 300 MG TAB PO SCH (08:07)
[2021-03-30] MEDS: FUROSEMIDE 40 MG TAB PO SCH (08:07)
[2021-03-30] MEDS: ASPIRIN 81 MG PO SCH (08:07)
[2021-03-30] MEDS: LOSARTAN 25 MG TAB PO SCH (08:07)
[2021-03-30] MEDS: HEPARIN SODIUM,PORCINE/PF 5,000 UNIT/0.5 ML SYRINGE SQ SCH (08:08)
[2021-03-30 09:25] VITALS: BP 159/98; PULSE 84; RESP 17; TEMP 97.9
--- NOTE | 2021-03-30 10:14 | P.DS ---
Providers Date of admission: 03/27/21 08:33 Expected date of discharge: 03/30/21 Attending physician: Kaykay Sierra MD Consults: 03/27/21 08:33 Consult Physician Routine Consulting Provider: Katia Martinez Consult Reason/Comments: CHF Do you want consulting provider notified?: Yes [facility] care physician: [facility] Course: HISTORY OF PRESENT ILLNESS This is an 85-year-old male with past medical history of dementia, hypertension, diabetes comes in with increased shortness of breath associated with headache for 1 day. Patient is stable at baseline does not get admitted to the hospital. at bedside is able to provide history. The patient is noted to be comfortable currently on BiPAP.Patient was noted to be in severe acute respiratory distress and brought to the emergency room. His tachycardia to Heart tachycardic hypertensive and hypoxic. Vitals reviewed patient pulse was 111 on admission was 222 blood pressure 187/118. EKG obtained as it is with sinus rhythm with left bundle branch block rate of 95. Patient's blood pressure improved to 160/80 and breathing improved while on BiPAP. He was given nitroglycerin drip. A dose of Lasix was given in the ER as well. Chest x-ray does suggest congestive heart failure. Labs are reviewed hemoglobin 11.1 hematocrit 101, sodium 140 chloride 108 BUN 21 creatinine 1.4 troponin elevated to 0.056 seconds troponin 0.0310 BNP 4780 03/28: Patient's breathing status is improved today. He is currently on 3 L high flow nasal cannula with pulse ox of 100%. Blood pressure 155/62, heart rate 83, afebrile. Repeat blood work reveals hemoglobin 10.1. Patient remains on heparin drip for elevated troponins and scheduled to see cardiology today. Echocardiogram has been obtained and report is pending. 03/29: Echocardiogram reveals EF of 45-50%, mild aortic regurgitation, mild aortic stenosis, mild mitral regurgitation, mild tricuspid regurgitation, mild pulmonary hypertension. Patient has been seen by cardiology this morning and cleared for discharge with planned follow-up with Dr. JENARO Madison. Patient has been afebrile, heart rate in 80s, blood pressure 159/98, pulse ox 95% on room air. CBG running at 96- 156. Patient denies having any chest pain or shortness of breath. Patient's daughter is at bedside. Patient will be discharged home in stable condition. DISCHARGE DIAGNOSES #1 acute hypoxic respiratory failure secondary to acute diastolic heart failure. #2 hypertensive urgency. #3 non-ST elevated NM, #4 hyperlipidemia #5 type 2 diabetes #6 chronic kidney disease stage III #7 chronic gout #8 recurrent depression #9 advanced dementia DISCHARGE PLAN Home with [facility] Greater than 35 minutes was utilized and coordinating patient's discharge. Impression and plan of care have been directed as dictated by the signing physician. Ale Camacho nurse practitioner acting as scribe for signing physician. Patient Condition at Discharge: Serious Plan - Discharge Summary New Discharge Prescriptions: New Losartan [Cozaar] 25 mg PO DAILY #30 tab Furosemide [Lasix] 40 mg PO DAILY #30 tab Potassium Chloride ER [K-Dur 20] 20 meq PO DAILY #30 tab Metoprolol Tartrate [Lopressor] 50 mg PO BID #60 tab Continue Cyanocobalamin (Vitamin B-12) [Vitamin B-12] 1,000 mcg PO SUTUTHSA@2100 Latanoprost [Xalatan 0.005%] 1 drop RIGHT EYE HS Brinzolamide/Brimonidine Tart [Simbrinza 1%-0.2% Eye Drops] 1 drop RIGHT EYE AC-LUNCH Atorvastatin [Lipitor] 20 mg PO HS allopurinoL [Zyloprim] 300 mg PO DAILY Saw Campbell 500 mg PO BID Cholecalciferol [Vitamin D3 (125 Mcg = 5000 Iu)] 125 mcg PO HS Sertraline HCl [Zoloft] 25 mg PO HS Krill Oil 500 mg PO DAILY Aspirin EC [Ecotrin Low Dose] 81 mg PO DAILY Discontinued Pioglitazone [Actos] 15 mg PO DAILY Labetalol [Trandate] 100 mg PO BID Discharge Medication List Atorvastatin [Lipitor] 20 mg PO HS 08/08/16 [History] Brinzolamide/Brimonidine Tart [Simbrinza 1%-0.2% Eye Drops] 1 drop RIGHT EYE AC- LUNCH 08/08/16 [History] Cyanocobalamin (Vitamin B-12) [Vitamin B-12] 1,000 mcg PO SUTUTHSA@2100 08/08/16 [History] Latanoprost [Xalatan 0.005%] 1 drop RIGHT EYE HS 08/08/16 [History] allopurinoL [Zyloprim] 300 mg PO DAILY 08/08/16 [History] Aspirin EC [Ecotrin Low Dose] 81 mg PO DAILY 03/27/21 [History] Cholecalciferol [Vitamin D3 (125 Mcg = 5000 Iu)] 125 mcg PO HS 03/27/21 [Hist ory] Krill Oil 500 mg PO DAILY 03/27/21 [History] Saw Campbell 500 mg PO BID 03/27/21 [History] Sertraline HCl [Zoloft] 25 mg PO HS 03/27/21 [History] Furosemide [Lasix] 40 mg PO DAILY #30 tab 03/30/21 [Rx] Losartan [Cozaar] 25 mg PO DAILY #30 tab 03/30/21 [Rx] Metoprolol Tartrate [Lopressor] 50 mg PO BID #60 tab 03/30/21 [Rx] Potassium Chloride ER [K-Dur 20] 20 meq PO DAILY #30 tab 03/30/21 [Rx] Follow up Appointment(s)/Referral(s): Warner Madison MD [STAFF PHYSICIAN] - 1 Week (office will call you to schedule appointment. ) Yina Terrazas MD [Primary Care Provider] - 04/05/21 1:00 pm (with Linda nurse practioner ) [facility] Visiting Nurse, [NON-STAFF] - Patient Instructions/Handouts: Heart Failure (DC) Discharge Disposition: HOME WITH HOME HEALTH SERVICES
[2021-03-30] MEDS: BRIMONIDINE TARTRATE 0.2% DROPS 5 ML BTL RIGHT EYE SCH (11:51)
[2021-03-30] MEDS: DORZOLAMIDE HCL 2% DROPS 10 ML BTL RIGHT EYE SCH (11:51)
--- NOTE | 2021-03-30 12:14 | P.PN ---
Subjective Progress Note Date: 03/30/21 HISTORY OF PRESENT ILLNESS: This is a 85-year-old male with a past medical history significant for hypertension, hyperlipidemia, diabetes, and dementia. 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 We have been asked to see the patient in consultation for congestive heart failure. Patient examined at the bedside. Patient is currently confused and is unable to provide much HPI. There is no family present. The patient is unsure why he was brought to the hospital. He denies any shortness of breath. He denies any chest pain. According to the emergency room physician note, the patient was brought into the hospital secondary to shortness of breath and respiratory distress. The patient was initially placed on BiPAP. He is currently on a nasal cannula. The patient was found to have abnormal troponins and was started on IV heparin. The patient was also found to be in acute congestive heart failure and was started on IV Lasix. * EKG reveals sinus rhythm with left bundle branch block. No previous EKG available for comparison. * Chest xray cardiomegaly with perihilar and diffuse mid and lower lung airspace disease. Possible CHF with pulmonary edema * Laboratory data: WBC 6.4. Hemoglobin 10.1. Platelet count 205. Sodium 140. Potassium 4.2. BUN 21. Creatinine 1.40. Troponin 0.056. 0.231. 0.322. ProBNP 4780. * Current home cardiac medications include aspirin 81 mg daily, labetalol 100 mg twice a day, Lipitor 20 mg at night * Most recent echocardiogram obtained in 2019 revealing ejection fraction 55-60% 03/29/2021 Patient examined this morning at the bedside. Patients daughter is present. Patient denies chest pain or pressure. He denies shortness of breath. He remains on IV heparin. Echocardiogram completed revealing ejection fraction 45- 50%, mild aortic regurgitation, mild aortic stenosis, mild mitral regurgitation, and mild tricuspid regurgitation 03/30/2021 Patient examined this morning at the bedside. Family member is present. Patient denies chest pain or pressure. He denies shortness of breath. Vital signs are stable. PHYSICAL EXAM: VITAL SIGNS: Reviewed. GENERAL: Well-developed in no acute distress. HEENT: Head is normocephalic. Pupils are equal, round. Sclerae anicteric. Mucous membranes of the mouth are moist. Neck supple. No JVD or thyromegaly LUNGS: Respirations even and unlabored. Lungs diminished. HEART: Regular rate and rhythm. S1 and S2 heard. ABDOMEN: Soft. Nondistended. Nontender. EXTREMITIES: Normal range of motion. No clubbing or cyanosis. Peripheral pulses intact. No lower extremity edema NEUROLOGIC: Awake and alert. Oriented x 1. ASSESSMENT: Acute congestive heart failure with preserved ejection fraction, borderline or intermediate EF Mild cardiomyopathy, etiology unclear Non-STEMI Acute hypoxic respiratory failure Hypertensive urgency, improving Acute kidney injury History of hypertension Hyperlipidemia Diabetes PLAN: Continue current cardiac medications The patient is stable for discharge home today from a cardiac standpoint He is to follow up on an outpatient basis with Dr. Madison Nurse practitioner note has been reviewed by physician. Signing provider agrees with the documented findings, assessment, and plan of care. Objective - Vital Signs Vital signs: Vital Signs Temp 97.9 F 03/30/21 08:00 Pulse 84 03/30/21 08:00 Resp 17 03/30/21 08:00 BP 159/98 03/30/21 08:00 Pulse Ox 96 03/30/21 08:30 Intake & Output 03/29/21 03/30/21 03/30/21 18:59 06:59 18:59 Intake Total 61.536 Balance 61.536 Weight 63.5 kg Intake: Intake, IV Titration 61.536 Amount Heparin Sod,Pork in 0.45% 61.536 NaCl 25,000 unit In 0.45 % NaCl 1 250ml.bag @ 12 UNITS/KG/HR 8.056 mls/hr IV .Q24H [facility] Rx#: [id number] Other: Voiding Method Diaper Diaper Diaper Incontinent Incontinent Incontinent # Voids 2 1 2 - Labs CBC & Chem 7: 03/28/21 07:37 03/27/21 07:44 Labs: Abnormal Lab Results - Last 24 Hours (Table) 03/29/21 03/30/21 Range/Units 20:08 06:04 POC Glucose (mg/dL) 156 H 105 H (75-99) mg/dL
== END 2021-03-30 11:51 | disposition home health service (06) | DRG 280 ==
LOC: EC 07:39 → 3SCARD 08:33
PROVIDERS: ADMIT Internal Medicine; ATTEND Internal Medicine
PROC: 5A09357 Assistance with Respiratory Ventilation, Less than 24 Consecutive Hours, Continuous Positive Airway Pressure (ICD-10-PCS; principal; 2021-03-27)
PROC: 5A0935A Assistance with Respiratory Ventilation, Less than 24 Consecutive Hours, High Flow/Velocity Cannula (ICD-10-PCS; 2021-03-27)
DX: I13.0 Hypertensive heart and chronic kidney disease with heart failure and stage 1 through stage 4 chronic kidney disease, or unspecified chronic kidney disease (principal); I21.4 Non-ST elevation (NSTEMI) myocardial infarction; I50.31 Acute diastolic (congestive) heart failure; J96.01 Acute respiratory failure with hypoxia; F33.9 Major depressive disorder, recurrent, unspecified; N17.9 Acute kidney failure, unspecified; D64.9 Anemia, unspecified; N18.30 Chronic kidney disease, stage 3 unspecified; E11.22 Type 2 diabetes mellitus with diabetic chronic kidney disease; E78.5 Hyperlipidemia, unspecified; F03.90 Unspecified dementia, unspecified severity, without behavioral disturbance, psychotic disturbance, mood disturbance, and anxiety; I16.0 Hypertensive urgency; Z20.822 Contact with and (suspected) exposure to COVID-19; I27.20 Pulmonary hypertension, unspecified; I42.9 Cardiomyopathy, unspecified; I44.7 Left bundle-branch block, unspecified; M1A.9XX0 Chronic gout, unspecified, without tophus (tophi); Z79.82 Long term (current) use of aspirin; Z79.84 Long term (current) use of oral hypoglycemic drugs; Z79.899 Other long term (current) drug therapy; Z82.3 Family history of stroke; Z85.46 Personal history of malignant neoplasm of prostate
CPT/HCPCS: 36415; 71045; 80053; 83036; 83735; 83880; 84443; 84484; 85025; 85610; 85730; 87635; 93005; 93306; 94660; 94760; 99291

== ENCOUNTER 2021-06-11 14:26 | Emergency (ER) | payer MEDICARE, OTHER ==
[2021-06-11 14:30] VITALS: RESP 18
--- NOTE | 2021-06-11 14:58 | ED ---
General Adult HPI - General Chief complaint: Neuro Symptoms/Deficit Stated complaint: TIA Time Seen by Provider: 06/11/21 14:34 Source: patient, EMS, RN notes reviewed, old records reviewed Mode of arrival: EMS Limitations: altered mental status - History of Present Illness Initial comments: 85-year-old male with an episode of altered level consciousness. History is obtained from paramedics and from the patient. Patient himself has no complaints. He is unsure exactly why he is here. Apparently he does have history of dementia. While eating at a local restaurant the patient had a staring episode and was altered momentarily. There've been no preceding symptoms. The patient denies pain complaints. No focal numbness or weakness. - Related Data Home Medications Medication Instructions Recorded Confirmed Atorvastatin [Lipitor] 20 mg PO HS 08/08/16 06/11/21 Brinzolamide/Brimonidine Tart 1 drop RIGHT EYE AC-LUNCH 08/08/16 06/11/21 [Simbrinza 1%-0.2% Eye Drops] Cyanocobalamin (Vitamin B-12) 1,000 mcg PO SUTUTHSA@2100 08/08/16 06/11/21 [Vitamin B-12] Latanoprost [Xalatan 0.005%] 1 drop RIGHT EYE HS 08/08/16 06/11/21 allopurinoL [Zyloprim] 300 mg PO DAILY 08/08/16 06/11/21 Aspirin EC [Ecotrin Low Dose] 81 mg PO DAILY 03/27/21 06/11/21 Cholecalciferol [Vitamin D3 (125 125 mcg PO HS 03/27/21 06/11/21 Mcg = 5000 Iu)] Krill Oil 500 mg PO DAILY 03/27/21 06/11/21 Saw [place] 500 mg PO BID 03/27/21 06/11/21 Sertraline HCl [Zoloft] 25 mg PO HS 03/27/21 06/11/21 Metoprolol Succinate [Toprol XL] 100 mg PO DAILY 06/11/21 06/11/21 Previous Rx's Medication Instructions Recorded Furosemide [Lasix] 40 mg PO DAILY #30 tab 03/30/21 Losartan [Cozaar] 25 mg PO DAILY #30 tab 03/30/21 Potassium Chloride ER [K-Dur 20] 20 meq PO DAILY #30 tab 03/30/21 Metoprolol Succinate (ER) [Toprol 25 mg PO DAILY 14 Days #14 tab 06/11/21 Xl] Allergies Allergy/AdvReac Type Severity Reaction Status Date / Time No Known Allergies Allergy Verified 06/11/21 15:42 Review of Systems ROS Statement: Those systems with pertinent positive or pertinent negative responses have been documented in the HPI. ROS Other: All systems not noted in ROS Statement are negative. Past Medical History Past Medical History: Dementia, Diabetes Mellitus, Hyperlipidemia, Hypertension Additional Past Medical History / Comment(s): Type 2 diabetes . poss. Prostate cancer History of Any Multi-Drug Resistant Organisms: None Reported Past Surgical History: No Surgical Hx Reported Additional Past Surgical History / Comment(s): cataract on left eye Past Anesthesia/Blood Transfusion Reactions: No Reported Reaction Past Psychological History: No Psychological Hx Reported Smoking Status: Never smoker Past Alcohol Use History: None Reported Past Drug Use History: None Reported General Exam Limitations: altered mental status General appearance: alert, in no apparent distress Head exam: Present: atraumatic, normocephalic Eye exam: Present: normal appearance, PERRL ENT exam: Present: mucous membranes moist Neck exam: Present: normal inspection. Absent: tenderness, meningismus Respiratory exam: Present: normal lung sounds bilaterally. Absent: respiratory distress Cardiovascular Exam: Present: regular rate, normal rhythm GI/Abdominal exam: Present: soft. Absent: distended, tenderness, guarding, rebound Extremities exam: Present: normal inspection, normal capillary refill. Absent: pedal edema Neurological exam: Present: alert. Absent: oriented X3, motor sensory deficit Psychiatric exam: Present: normal affect, normal mood Skin exam: Present: warm, dry, intact. Absent: cyanosis, diaphoretic Course Vital Signs 06/11/21 14:28 Temperature 98.6 F Pulse Rate 56 L Respiratory 18 Rate Blood Pressure 109/53 O2 Sat by Pulse 99 Oximetry EKG Findings - EKG Comments: EKG Findings:: EKG: Sinus bradycardia, left bundle branch block ventricular rate of 56, ND interval 154, QRS duration 158, QTC 513. no change from prior. Medical Decision Making - Medical Decision Making 75-year-old male history dementia, unable to significantly contribute to the history. I did obtain further history from the patient's daughter who states that he had a momentary loss consciousness wall sitting for lunch. There was no significant injury. He did state that he felt dizzy prior to this. Additionally there has been some recent changes in medication his Toprol-XL was prescribed at 100 mg daily. His daughters been giving 50 mg. His initial heart rate is in the 50s. This may be contributory. His laboratory testing is stable, he has an anemia which is stable, mild worsening of serum creatinine at 1.88 with baseline CK D. Head CT is unchanged from prior. Chest x-ray is bill ar. Patient and family eager for discharge. We did discuss lowering the Toprol dose to 25 mg daily. This prescription has been written. I discussed case with Dr. Terrazas who is the patient's primary care physician. She is agreeable with discharge and close outpatient follow-up at this time. - Lab Data Result diagrams: 06/11/21 14:37 06/11/21 14:37 Lab Results 06/11/21 06/11/21 06/11/21 Range/Units 14:37 14:37 14:37 WBC 5.9 (3.8-10.6) k/uL RBC 3.57 L (4.30-5.90) m/uL Hgb 11.2 L (13.0-17.5) gm/dL Hct 37.1 L (39.0-53.0) % MCV 103.7 H (80.0-100.0) fL MCH 31.4 (25.0-35.0) pg MCHC 30.3 L (31.0-37.0) g/dL RDW 16.9 H (11.5-15.5) % Plt Count 182 (150-450) k/uL MPV 8.4 Neutrophils % 55 % Lymphocytes % 32 % Monocytes % 4 % Eosinophils % 6 % Basophils % 0 % Neutrophils # 3.3 (1.3-7.7) k/uL Lymphocytes # 1.9 (1.0-4.8) k/uL Monocytes # 0.3 (0-1.0) k/uL Eosinophils # 0.4 (0-0.7) k/uL Basophils # 0.0 (0-0.2) k/uL Hypochromasia Moderate Anisocytosis Slight Macrocytosis Moderate PT 10.6 (9.0-12.0) sec INR 1.0 (<1.2) APTT 24.2 (22.0-30.0) sec Sodium 138 (137-145) mmol/L Potassium 4.4 (3.5-5.1) mmol/L Chloride 106 (98-107) mmol/L Carbon Dioxide 27 (22-30) mmol/L Anion Gap 5 mmol/L BUN 29 H (9-20) mg/dL Creatinine 1.88 H (0.66-1.25) mg/dL Est GFR (CKD-EPI)AfAm 36 (>60 ml/min/1.73 sqM) Est GFR (CKD-EPI)NonAf 32 (>60 ml/min/1.73 sqM) Glucose 172 H (74-99) mg/dL Calcium 8.4 (8.4-10.2) mg/dL Total Bilirubin 0.6 (0.2-1.3) mg/dL AST 34 (17-59) U/L ALT 14 (4-49) U/L Alkaline Phosphatase 49 (38-126) U/L Troponin I (0.000-0.034) ng/mL Total Protein 6.4 (6.3-8.2) g/dL Albumin 3.2 L (3.5-5.0) g/dL 06/11/21 Range/Units 14:37 WBC (3.8-10.6) k/uL RBC (4.30-5.90) m/uL Hgb (13.0-17.5) gm/dL Hct (39.0-53.0) % MCV (80.0-100.0) fL MCH (25.0-35.0) pg MCHC (31.0-37.0) g/dL RDW (11.5-15.5) % Plt Count (150-450) k/uL MPV Neutrophils % % Lymphocytes % % Monocytes % % Eosinophils % % Basophils % % Neutrophils # (1.3-7.7) k/uL Lymphocytes # (1.0-4.8) k/uL Monocytes # (0-1.0) k/uL Eosinophils # (0-0.7) k/uL Basophils # (0-0.2) k/uL Hypochromasia Anisocytosis Macrocytosis PT (9.0-12.0) sec INR (<1.2) APTT (22.0-30.0) sec Sodium (137-145) mmol/L Potassium (3.5-5.1) mmol/L Chloride (98-107) mmol/L Carbon Dioxide (22-30) mmol/L Anion Gap mmol/L BUN (9-20) mg/dL Creatinine (0.66-1.25) mg/dL Est GFR (CKD-EPI)AfAm (>60 ml/min/1.73 sqM) Est GFR (CKD-EPI)NonAf (>60 ml/min/1.73 sqM) Glucose (74-99) mg/dL Calcium (8.4-10.2) mg/dL Total Bilirubin (0.2-1.3) mg/dL AST (17-59) U/L ALT (4-49) U/L Alkaline Phosphatase (38-126) U/L Troponin I 0.021 (0.000-0.034) ng/mL Total Protein (6.3-8.2) g/dL Albumin (3.5-5.0) g/dL Disposition Clinical Impression: Syncope Disposition: HOME SELF-CARE Condition: Fair Instructions (If sedation given, give patient instructions): Syncope (ED) Prescriptions: Metoprolol Succinate (ER) [Toprol Xl] 25 mg PO DAILY 14 Days #14 tab Is patient prescribed a controlled substance at d/c from ED?: No Referrals: Yina Terrazas MD [Primary Care Provider] - 1-2 days Time of Disposition: 17:04
[2021-06-11 15:03] LABS: Anisocytosis Slight; Basophils % (A) 0 %; Eosinophils # (A) 0.4 k/uL (0-0.7); Eosinophils % (A) 6 %; HCT 37.1 % (39.0-53.0); HGB 11.2 gm/dL (13.0-17.5); Hypochromasia Moderate; Lymphocytes # (A) 1.9 k/uL (1.0-4.8); Lymphocytes % (A) 32 %; MCH 31.4 pg (25.0-35.0); MCHC 30.3 g/dL (31.0-37.0); MCV 103.7 fL (80.0-100.0); Macrocytosis Moderate; Mean Platelet Volume 8.4; Monocytes # (A) 0.3 k/uL (0-1.0); Monocytes % (A) 4 %; Neutrophils # (A) 3.3 k/uL (1.3-7.7); Neutrophils % (A) 55 %; Platelet Count 182 k/uL (150-450); RBC 3.57 m/uL (4.30-5.90); RDW 16.9 % (11.5-15.5); WBC 5.9 k/uL (3.8-10.6)
[2021-06-11 15:12] LABS: Albumin 3.2 g/dL (3.5-5.0); Calcium 8.4 mg/dL (8.4-10.2); Potassium 4.4 mmol/L (3.5-5.1); Total Bilirubin 0.6 mg/dL (0.2-1.3); Total Protein 6.4 g/dL (6.3-8.2)
[2021-06-11 15:16] LABS: Partial Thromboplastin Time 24.2 sec (22.0-30.0); Prothrombin Time 10.6 sec (9.0-12.0)
--- NOTE | 2021-06-11 15:45 | XR ---
EXAMINATION TYPE: XR chest 2V DATE OF EXAM: 06/11/2021 COMPARISON: 03/27/2021 HISTORY: Altered mental status TECHNIQUE: 2 views FINDINGS: There is no heart failure nor confluent pneumonic infiltrate. Thoracic aorta is atheromatou s. There are chest leads. Costophrenic angles are clear. There is old fracture left lateral seventh r ib. IMPRESSION: No active cardiopulmonary disease. There is clearing of the pulmonary edema compared to o ld exam.
--- NOTE | 2021-06-11 16:06 | CT ---
EXAMINATION TYPE: CT brain wo con DATE OF EXAM: 06/11/2021 COMPARISON: 12/03/2014 HISTORY: Neuro deficit, acute, stroke suspected CT DLP: 1099.4 mGycm Automated exposure control for dose reduction was used. There is cerebral cortical atrophy. There is patchy hypodensity in the periventricular white matter. 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 Calvarium is intact. IMPRESSION: Chronic small vessel ischemia. 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 No acute abnormality.
[2021-06-11 17:46] VITALS: BP 136/87; PULSE 88; TEMP 98.3
== END 2021-06-11 17:45 | disposition home or self-care (01) ==
LOC: EC 14:26
DX: R55 Syncope and collapse (principal); R41.82 Altered mental status, unspecified; E11.9 Type 2 diabetes mellitus without complications; I10 Essential (primary) hypertension; E78.5 Hyperlipidemia, unspecified; F03.90 Unspecified dementia, unspecified severity, without behavioral disturbance, psychotic disturbance, mood disturbance, and anxiety; Z79.82 Long term (current) use of aspirin; Z79.899 Other long term (current) drug therapy
CPT/HCPCS: 36415; 70450; 71046; 80053; 84484; 85025; 85610; 85730; 93005; 99285

== ENCOUNTER 2021-12-26 10:48 | Inpatient (IN) | payer MEDICARE, OTHER ==
[2021-12-26] MEDS: EPINEPHrine 10 ML SYRINGE (0.1 MG/ML) IV SCH ×2 (10:55→11:15)
[2021-12-26] MEDS ORDERED: SODIUM CHLORIDE 0.9% 1,000 ML IV ONE ×2 (11:13)
--- NOTE | 2021-12-26 11:41 | XR ---
EXAMINATION TYPE: XR chest 1V confirm line [facility] DATE OF EXAM: 12/26/2021 HISTORY: Shortness of breath. COMPARISON: 06/11/2021 TECHNIQUE: Single view of the chest is submitted. FINDINGS: The tip of the endotracheal tube is 1.5 cm from the regi. NG tube is seen coursing into the stomach . There is no evidence for focal infiltrate. The heart is stable. Hilar and mediastinal structures are within normal limits. Degenerative changes are seen of the dorsal spine. IMPRESSION: 1. Endotracheal tube and NG tube as above.
--- NOTE | 2021-12-26 11:45 | ED ---
Altered Mental Status HPI <Jean Coats - Last Filed: 12/27/21 10:12> <Sona Polanco - Last Filed: 12/29/21 23:36> - General Stated Complaint: Unresponsive - History of Present Illness Initial Comments: 85-year-old male with past medical history of diabetes, hypertension, hyperlipidemia presents to the emergency department as a Peter Rony. Family states that the patient awoke this morning and was his normal self. Over the course of the morning he became progressively altered. EMS arrived to find him sitting in a chair. He was unresponsive to verbal and painful stimuli. He had stable vital signs for EMS. Upon arrival patient is hypotensive and apneic. No reported falls. Patient cannot provide any history (Sona Polanco) - Related Data Home Medications Medication Instructions Recorded Confirmed Atorvastatin [Lipitor] 20 mg PO HS 08/08/16 06/11/21 Brinzolamide/Brimonidine Tart 1 drop RIGHT EYE AC-LUNCH 08/08/16 06/11/21 [Simbrinza 1%-0.2% Eye Drops] Cyanocobalamin (Vitamin B-12) 1,000 mcg PO SUTUTHSA@2100 08/08/16 06/11/21 [Vitamin B-12] Latanoprost [Xalatan 0.005%] 1 drop RIGHT EYE HS 08/08/16 06/11/21 allopurinoL [Zyloprim] 300 mg PO DAILY 08/08/16 06/11/21 Aspirin EC [Ecotrin Low Dose] 81 mg PO DAILY 03/27/21 06/11/21 Cholecalciferol [Vitamin D3 (125 125 mcg PO HS 03/27/21 06/11/21 Mcg = 5000 Iu)] Krill Oil 500 mg PO DAILY 03/27/21 06/11/21 Saw [place] 500 mg PO BID 03/27/21 06/11/21 Sertraline HCl [Zoloft] 25 mg PO HS 03/27/21 06/11/21 Metoprolol Succinate [Toprol XL] 100 mg PO DAILY 06/11/21 06/11/21 Previous Rx's Medication Instructions Recorded Furosemide [Lasix] 40 mg PO DAILY #30 tab 03/30/21 Losartan [Cozaar] 25 mg PO DAILY #30 tab 03/30/21 Potassium Chloride ER [K-Dur 20] 20 meq PO DAILY #30 tab 03/30/21 Metoprolol Succinate (ER) [Toprol 25 mg PO DAILY 14 Days #14 tab 06/11/21 Xl] Allergies Allergy/AdvReac Type Severity Reaction Status Date / Time No Known Allergies Allergy Verified 12/26/21 11:50 Review of Systems ROS Other: All systems not noted in ROS Statement are negative. <Jean Coats - Last Filed: 12/27/21 10:12> ROS Other: All systems not noted in ROS Statement are negative. <JosephraulSona Amaya - Last Filed: 12/29/21 23:36> ROS Statement: Those systems with pertinent positive or pertinent negative responses have been documented in the HPI. Past Medical History Past Medical History: Dementia, Diabetes Mellitus, Hyperlipidemia, Hypertension Additional Past Medical History / Comment(s): Type 2 diabetes . poss. Prostate cancer History of Any Multi-Drug Resistant Organisms: None Reported Past Surgical History: No Surgical Hx Reported Additional Past Surgical History / Comment(s): cataract on left eye Past Anesthesia/Blood Transfusion Reactions: No Reported Reaction Past Psychological History: No Psychological Hx Reported Smoking Status: Never smoker Past Alcohol Use History: None Reported Past Drug Use History: None Reported <JosephraulSona Amaya - Last Filed: 12/29/21 23:36> General Exam Limitations: altered mental status General appearance: obtunded Head exam: Present: atraumatic, normocephalic, normal inspection Eye exam: Present: PERRL ENT exam: Present: normal exam, mucous membranes moist Respiratory exam: Present: other (patient apneic - requires bagging upon arrival) Cardiovascular Exam: Present: normal rhythm, bradycardia, normal heart sounds. Absent: systolic murmur, diastolic murmur, rubs, gallop, clicks GI/Abdominal exam: Present: soft, normal bowel sounds. Absent: distended, tenderness, guarding, rebound, rigid Neurological exam: Present: other (completely unresponsive to painful stimuli. No gag. Patient unable to follow any commands) Skin exam: Present: cyanosis <Sona Polanco - Last Filed: 12/29/21 23:36> Course <Sona Polanco - Last Filed: 12/29/21 23:36> Vital Signs 12/26/21 12/26/21 12/26/21 10:50 11:13 11:14 Temperature 96.8 F L Pulse Rate 60 Respiratory 0 L Rate Blood Pressure 96/58 O2 Sat by Pulse 98 Oximetry Fraction of 100 100 Inspired Oxygen (FIO2) 12/26/21 12/26/21 12/26/21 11:43 12:14 12:25 Temperature Pulse Rate 50 L 54 L Respiratory Rate Blood Pressure 98/77 94/82 O2 Sat by Pulse 99 99 Oximetry Fraction of 50 Inspired Oxygen (FIO2) 12/26/21 12/26/21 12/26/21 13:04 13:57 14:40 Temperature Pulse Rate 57 L 54 L 52 L Respiratory 16 16 16 Rate Blood Pressure 42/32 53/40 61/40 O2 Sat by Pulse 99 99 99 Oximetry Fraction of Inspired Oxygen (FIO2) 12/26/21 12/26/21 12/26/21 15:02 16:07 16:20 Temperature Pulse Rate 52 L 50 L Respiratory 16 16 Rate Blood Pressure 69/44 64/42 O2 Sat by Pulse 99 99 Oximetry Fraction of 50 Inspired Oxygen (FIO2) 12/26/21 12/26/21 12/26/21 17:51 18:42 19:31 Temperature Pulse Rate 49 L 50 L Respiratory 16 16 Rate Blood Pressure 59/41 57/37 O2 Sat by Pulse 99 99 Oximetry Fraction of 50 Inspired Oxygen (FIO2) 12/26/21 12/26/21 12/26/21 19:37 22:45 23:02 Temperature Pulse Rate 50 L 51 L 49 L Respiratory 11 L 13 11 L Rate Blood Pressure 53/35 69/46 52/35 O2 Sat by Pulse 100 98 98 Oximetry Fraction of Inspired Oxygen (FIO2) 12/27/21 12/27/21 12/27/21 00:03 00:33 00:53 Temperature Pulse Rate 49 L 50 L Respiratory 16 Rate Blood Pressure 51/33 O2 Sat by Pulse 99 Oximetry Fraction of 50 Inspired Oxygen (FIO2) 12/27/21 12/27/21 12/27/21 01:06 02:00 03:29 Temperature Pulse Rate 49 L 52 L Respiratory 16 Rate Blood Pressure 59/35 O2 Sat by Pulse 100 Oximetry Fraction of 50 Inspired Oxygen (FIO2) 12/27/21 12/27/21 12/27/21 03:32 03:47 04:23 Temperature Pulse Rate 50 L 50 L 53 L Respiratory 16 Rate Blood Pressure 63/41 O2 Sat by Pulse 99 Oximetry Fraction of Inspired Oxygen (FIO2) 12/27/21 12/27/21 12/27/21 06:53 07:29 07:40 Temperature Pulse Rate 53 L 53 L 53 L Respiratory 16 18 Rate Blood Pressure 72/46 76/49 O2 Sat by Pulse 100 97 Oximetry Fraction of 50 Inspired Oxygen (FIO2) 12/27/21 12/27/21 12/27/21 07:50 10:07 11:00 Temperature Pulse Rate 53 L 64 63 Respiratory 18 18 Rate Blood Pressure 78/43 70/46 O2 Sat by Pulse 94 L 99 Oximetry Fraction of Inspired Oxygen (FIO2) 12/27/21 12/27/21 12/27/21 11:38 11:41 11:52 Temperature Pulse Rate 62 63 Respiratory Rate Blood Pressure O2 Sat by Pulse Oximetry Fraction of 50 Inspired Oxygen (FIO2) 12/27/21 12:00 Temperature Pulse Rate Respiratory Rate Blood Pressure O2 Sat by Pulse Oximetry Fraction of 50 Inspired Oxygen (FIO2) - Reevaluation(s) Reevaluation #1: 12/26/21 11:45 Spoke with family - large bleed - discussing hospice vs transfer (Sona Polanco) Reevaluation #2: Speaking with [facility] right now in an attempt to transfer the patient 12/26/21 12:06 (Sona Polanco) Reevaluation #3: 12/26/21 12:[address] Wren at [facility] - accepts patient (Sona Polanco) Reevaluation #4: Patient family requests that I stopped doing central line. Would like to cancel transfer. Agreeable to Comfort Care measures only however would not like terminal extubation until family arrives. Patient DNR 12/26/21 12:46 (Sona Polanco) Procedures - Intubation Size: 3 Assist Device Used: fiber optic device ET Tube Size: 7.5 ET Tube Uncuffed: No Tube Secured Depth (cm): 24 Tube Secured Location: teeth Tube Placement Confirmation: visualized tube passing through cords, equal breath sounds bilaterally, no breath sounds over epigastrium, confirmation by capnometry Patient Tolerated Procedure: well, no complications <Sona Polanco - Last Filed: 12/29/21 23:36> - Intubation Additional Comments: patient was intubated without needing sedation or paralytic (Sona Polanco) Medical Decision Making - Lab Data Result diagrams: 12/26/21 12:07 12/26/21 12:07 <Jean Coats - Last Filed: 12/27/21 10:12> - Lab Data Result diagrams: 12/26/21 12:07 12/26/21 12:07 <Sona Polanco - Last Filed: 12/29/21 23:36> - Medical Decision Making Upon arrival patient was placed in room 6. His quickly noted to the patient is apneic and entirely unresponsive to painful stimuli. He is placed into trauma bay 2. Family does arrive and CODE STATUS is discussed with them. They requested the patient remain a full code and are aware that I would place the patient on the ventilator at this time. He was given a first dose of epi prior to intubation due to low blood pressures. Patient does not have a gag. Patient is intubated without any need for medication. Chest x-rays performed which confirms tube placement. Patient was then sent for CT which demonstrates a very large intraventricular bleed with subarachnoid, subdural with impending herniation. Results are discussed with the patient's family who continue to re quest a remain a full code. I discussed with the patient had be transferred to an outside facility. They were agreeable. I called [facility]. Patient was accepted by Dr. Wren. Pending transfer the patient does have progressively lower blood pressures. Did discuss the need for central line and pressors at this time. Spoke with family about increasing poor prognosis. I did attempt to place a central line as family wanted full care however I am stopped mid procedure by the patient's stating that they would like to discontinue care. They do not want the patient extubated at this time however are understanding of the patient's needs to be a DNR. Family is waiting for 2 additional family members to presents to the hospital before they would like the patient extubated. Called and spoke with Dr. Curran who will follow the patient. Dr. Rush accepts admission. (Sona Polanco) - Lab Data Lab Results 12/26/21 12/26/21 12/26/21 Range/Units 12:07 12:07 12:07 WBC 6.1 (3.8-10.6) k/uL RBC 2.68 L (4.30-5.90) m/uL Hgb 8.6 L (13.0-17.5) gm/dL Hct 28.0 L (39.0-53.0) % MCV 104.6 H (80.0-100.0) fL MCH 32.2 (25.0-35.0) pg MCHC 30.8 L (31.0-37.0) g/dL RDW 14.5 (11.5-15.5) % Plt Count 133 L (150-450) k/uL MPV 9.3 Neutrophils % 88 % Lymphocytes % 6 % Monocytes % 5 % Eosinophils % 0 % Basophils % 0 % Neutrophils # 5.3 (1.3-7.7) k/uL Lymphocytes # 0.4 L (1.0-4.8) k/uL Monocytes # 0.3 (0-1.0) k/uL Eosinophils # 0.0 (0-0.7) k/uL Basophils # 0.0 (0-0.2) k/uL Hypochromasia Slight Macrocytosis Moderate PT 11.1 (9.0-12.0) sec INR 1.0 (<1.2) APTT 25.8 (22.0-30.0) sec Sample Site ABG pH (7.35-7.45) ABG pCO2 (35-45) mmHg ABG pO2 (83-108) mmHg ABG HCO3 (21-25) mmol/L ABG Total CO2 (19-24) mmol/L ABG O2 Saturation (94-97) % ABG Base Excess mmol/L Joe Test FiO2 % Sodium 138 (137-145) mmol/L Potassium 3.3 L (3.5-5.1) mmol/L Chloride 110 H (98-107) mmol/L Carbon Dioxide 21 L (22-30) mmol/L Anion Gap 7 mmol/L BUN 29 H (9-20) mg/dL Creatinine 1.64 H (0.66-1.25) mg/dL Est GFR (CKD-EPI)AfAm 43 (>60 ml/min/1.73 sqM) Est GFR (CKD-EPI)NonAf 37 (>60 ml/min/1.73 sqM) Glucose 146 H (74-99) mg/dL Lactic Ac Sepsis Rflx Plasma Lactic Acid Regulo (0.7-2.0) mmol/L Calcium 7.5 L (8.4-10.2) mg/dL Total Bilirubin 0.5 (0.2-1.3) mg/dL AST 29 (17-59) U/L ALT 18 (4-49) U/L Alkaline Phosphatase 63 (38-126) U/L Ammonia (<30) umol/L Troponin I (0.000-0.034) ng/mL Total Protein 5.0 L (6.3-8.2) g/dL Albumin 2.6 L (3.5-5.0) g/dL Salicylates <1.0 mg/dL Acetaminophen <10.0 ug/mL Serum Alcohol <10 mg/dL 12/26/21 12/26/21 12/26/21 Range/Units 12:07 12:07 12:16 WBC (3.8-10.6) k/uL RBC (4.30-5.90) m/uL Hgb (13.0-17.5) gm/dL Hct (39.0-53.0) % MCV (80.0-100.0) fL MCH (25.0-35.0) pg MCHC (31.0-37.0) g/dL RDW (11.5-15.5) % Plt Count (150-450) k/uL MPV Neutrophils % % Lymphocytes % % Monocytes % % Eosinophils % % Basophils % % Neutrophils # (1.3-7.7) k/uL Lymphocytes # (1.0-4.8) k/uL Monocytes # (0-1.0) k/uL Eosinophils # (0-0.7) k/uL Basophils # (0-0.2) k/uL Hypochromasia Macrocytosis PT (9.0-12.0) sec INR (<1.2) APTT (22.0-30.0) sec Sample Site lrad ABG pH 7.36 (7.35-7.45) ABG pCO2 39 (35-45) mmHg ABG pO2 311 H (83-108) mmHg ABG HCO3 22 (21-25) mmol/L ABG Total CO2 23 (19-24) mmol/L ABG O2 Saturation 100.0 H (94-97) % ABG Base Excess -3.3 mmol/L Joe Test Yes FiO2 100 % Sodium (137-145) mmol/L Potassium (3.5-5.1) mmol/L Chloride (98-107) mmol/L Carbon Dioxide (22-30) mmol/L Anion Gap mmol/L BUN (9-20) mg/dL Creatinine (0.66-1.25) mg/dL Est GFR (CKD-EPI)AfAm (>60 ml/min/1.73 sqM) Est GFR (CKD-EPI)NonAf (>60 ml/min/1.73 sqM) Glucose (74-99) mg/dL Lactic Ac Sepsis Rflx Plasma Lactic Acid Regulo 2.1 H* (0.7-2.0) mmol/L Calcium (8.4-10.2) mg/dL Total Bilirubin (0.2-1.3) mg/dL AST (17-59) U/L ALT (4-49) U/L Alkaline Phosphatase (38-126) U/L Ammonia <9 (<30) umol/L Troponin I 0.106 H* (0.000-0.034) ng/mL Total Protein (6.3-8.2) g/dL Albumin (3.5-5.0) g/dL Salicylates mg/dL Acetaminophen ug/mL Serum Alcohol mg/dL 12/26/21 Range/Units 12:57 WBC (3.8-10.6) k/uL RBC (4.30-5.90) m/uL Hgb (13.0-17.5) gm/dL Hct (39.0-53.0) % MCV (80.0-100.0) fL MCH (25.0-35.0) pg MCHC (31.0-37.0) g/dL RDW (11.5-15.5) % Plt Count (150-450) k/uL MPV Neutrophils % % Lymphocytes % % Monocytes % % Eosinophils % % Basophils % % Neutrophils # (1.3-7.7) k/uL Lymphocytes # (1.0-4.8) k/uL Monocytes # (0-1.0) k/uL Eosinophils # (0-0.7) k/uL Basophils # (0-0.2) k/uL Hypochromasia Macrocytosis PT (9.0-12.0) sec INR (<1.2) APTT (22.0-30.0) sec Sample Site ABG pH (7.35-7.45) ABG pCO2 (35-45) mmHg ABG pO2 (83-108) mmHg ABG HCO3 (21-25) mmol/L ABG Total CO2 (19-24) mmol/L ABG O2 Saturation (94-97) % ABG Base Excess mmol/L Joe Test FiO2 % Sodium (137-145) mmol/L Potassium (3.5-5.1) mmol/L Chloride (98-107) mmol/L Carbon Dioxide (22-30) mmol/L Anion Gap mmol/L BUN (9-20) mg/dL Creatinine (0.66-1.25) mg/dL Est GFR (CKD-EPI)AfAm (>60 ml/min/1.73 sqM) Est GFR (CKD-EPI)NonAf (>60 ml/min/1.73 sqM) Glucose (74-99) mg/dL Lactic Ac Sepsis Rflx Y Plasma Lactic Acid Regulo (0.7-2.0) mmol/L Calcium (8.4-10.2) mg/dL Total Bilirubin (0.2-1.3) mg/dL AST (17-59) U/L ALT (4-49) U/L Alkaline Phosphatase (38-126) U/L Ammonia (<30) umol/L Troponin I (0.000-0.034) ng/mL Total Protein (6.3-8.2) g/dL Albumin (3.5-5.0) g/dL Salicylates mg/dL Acetaminophen ug/mL Serum Alcohol mg/dL - EKG Data EKG Comments: EKG demonstrates sinus rhythm with a rate of 66. WA interval 188. QRS 180. QTC of 575. A bundle-branch block. Negative for Sgarbossa criteria. EKG is interpreted by myself (Sona Polanco) Critical Care Time Critical Care Time: Yes <Sona Polanco - Last Filed: 12/29/21 23:36> Critical Care Time: 35 minutes (Sona Polanco) Disposition <Jean Coats - Last Filed: 12/27/21 10:12> Is patient prescribed a controlled substance at d/c from ED?: No Time of Disposition: 12:47 Decision to Admit Reason: Admit from EC Decision Date: 12/26/21 Decision Time: 12:47 <Sona Polanco - Last Filed: 12/29/21 23:36> Clinical Impression: Intraventricular hemorrhage, Ventilator dependence, Acute encephalopathy Disposition: ADMITTED IP TO THIS HOSP Condition: Critical
--- NOTE | 2021-12-26 11:54 | CT ---
EXAMINATION TYPE: CT brain wo con DATE OF EXAM: 12/26/2021 COMPARISON: 06/11/2021 HISTORY: Unresponsive CT DLP: 1003 mGycm Automated exposure control for dose reduction was used. FINDINGS: There is a 4 cm large acute hemorrhage involving the right cerebellum extending to the midline with i ntraventricular extension. There is compression of the fourth ventricle. There appears to be hyperden sity extending into the third ventricle. Along the right cerebellar hemisphere there is a large area of hyperdensity which could represent a subdural component of the hemorrhage. Assess for dural venous sinus also recommended. A central ventricular dilation appears increased from prior examination may be a component of hydrocephalus to go with moderate generalized degenerative change. Diffuse perivent ricular low-attenuation suggestive of remote ischemic white matter. Calvarium intact. Changes of chronic sinusitis. Orbits are symmetric. Cerebellar tonsils are low-lyin g. IMPRESSION: 1. LARGE ACUTE INTRACRANIAL HEMORRHAGE MEASURING 4 CM INVOLVING THE CEREBELLUM COMPRESSION OF THE FOU RTH VENTRICLE AND SENSOR OF THE HEMORRHAGE INTO THE FOURTH AND THIRD VENTRICLES. SUSPECT THAT THERE I S A COMPONENT OF COMPRESSIVE HYDROCEPHALUS SUPERIMPOSED ON A BACKGROUND OF DEGENERATIVE REMOTE ISCHEM IC CHANGES. 2. ALONG THE RIGHT CEREBELLAR HEMISPHERE CONVEXITY THERE IS A LARGE AREA OF HYPERDENSITY LIKELY ON TH E BASIS OF A SUBDURAL COMPONENT TO THE HEMORRHAGE. CASE DISCUSSED WITH ER PHYSICIAN. CT ANGIOGRAM TO FOLLOW. 3. LOW-LYING CEREBELLAR TONSILS IS NEW FROM PRIOR EXAM SUGGESTIVE OF BRAINSTEM COMPRESSION AND TONSIL LAR HERNIATION.
[2021-12-26 12:19] LABS: ABG Base Excess -3.3 mmol/L; ABG HCO3 22 mmol/L (21-25); ABG PCO2 39 mmHg (35-45); ABG PH 7.36 (7.35-7.45); ABG PO2 311 mmHg (83-108); ABG TCO2 23 mmol/L (19-24); Allen Test Performed? Yes
[2021-12-26] MEDS ORDERED: NOREPINEPHRINE 32 MG in SODIUM CHLORIDE 0.9% 218 ML IV ONE (12:23)
--- NOTE | 2021-12-26 12:29 | CT ---
EXAMINATION TYPE: CT angio head neck CT DLP: 547.1 mGycm, Automated exposure control for dose reduction was used. DATE OF EXAM: 12/26/2021 11:59 AM COMPARISON: CT same day 12/26/2021, CT brain 06/11/2021.. CLINICAL INDICATION:Male, 85 years old with history of ams; , brain hemorrhage TECHNIQUE: Axially acquired helical CT angiogram of the head and neck was obtained with contrast. Axi al images are supplemented with 3D reconstructions [facility] NASCET criteria used. Contrast used:65 mL of Isovue 370 with IV Contrast, Oral contrast used: None. FINDINGS: CTA HEAD: There is acute intracranial hemorrhage involving the posterior fossa within the ventricular system in cluding the posterior horns of the lateral ventricles and the fourth ventricle. There is crowding of the basilar cisterns. The visualized portions of the internal carotid arteries, middle cerebral arteries, anterior cerebral arteries, and posterior cerebral arteries are patent. There is a diminutive versus absent right A1 s egment of the anterior cerebral artery. There is atherosclerosis of the intracranial portions of the internal carotid arteries. The basilar and vertebral arteries are patent. CTA NECK: Right Carotid System: The common carotid artery and external carotid artery are patent. The carotid bifurcation demonstrate s no evidence of hemodynamically significant stenosis. Calcified plaque at the bifurcation is present . The remaining portions of the internal carotid artery demonstrate normal size without significant n arrowing. Left Carotid System: The common carotid artery and external carotid artery are patent. The carotid bifurcation demonstrate s calcified plaque with at least 25-50 % stenosis. The remaining portions of the internal carotid art cresencio demonstrate normal size without significant narrowing. Vertebral arteries are patent without evidence hemodynamically significant stenosis. There is a three-vessel aortic arch. The origins of the great vessels are patent. No evidence of hemo dynamically significant stenosis. Atherosclerosis of the arterial vasculature is present. Endotracheal tube terminates above the regi. Nasogastric tube within the esophagus. IMPRESSION: 1. Redemonstration of intracranial hemorrhage involving the ventricles and predominantly the posterio r cranial fossa. There remains compression of the brainstem with crowding of the basilar cisterns. No evidence of intracranial high-grade stenosis or intracranial aneurysm. 2. No evidence of dissection of the cervical internal carotid arteries or vertebral arteries. 3. Calcified atherosclerotic plaque at the left carotid bifurcation with at least 25-50 % stenosis. 4. Anatomic variant diminutive versus absent right A1 segment of the anterior cerebral artery.
[2021-12-26 12:34] LABS: Basophils % (A) 0 %; Eosinophils % (A) 0 %; HGB 8.6 gm/dL (13.0-17.5); Hypochromasia Slight; Lymphocytes # (A) 0.4 k/uL (1.0-4.8); Lymphocytes % (A) 6 %; MCH 32.2 pg (25.0-35.0); MCHC 30.8 g/dL (31.0-37.0); MCV 104.6 fL (80.0-100.0); Macrocytosis Moderate; Mean Platelet Volume 9.3; Monocytes # (A) 0.3 k/uL (0-1.0); Monocytes % (A) 5 %; Neutrophils # (A) 5.3 k/uL (1.3-7.7); Neutrophils % (A) 88 %; Platelet Count 133 k/uL (150-450); RBC 2.68 m/uL (4.30-5.90); RDW 14.5 % (11.5-15.5); WBC 6.1 k/uL (3.8-10.6)
[2021-12-26 12:36] LABS: ALT 18 U/L (4-49); AST 29 U/L (17-59); Acetaminophen <10.0 ug/mL; African American GFR (CKD) 43 (>60 ml/min/1.73 sqM); Albumin 2.6 g/dL (3.5-5.0); Alcohol <10 mg/dL; Alkaline Phosphatase 63 U/L (38-126); Anion Gap 7 mmol/L; Blood Urea Nitrogen 29 mg/dL (9-20); Calcium 7.5 mg/dL (8.4-10.2); Carbon Dioxide 21 mmol/L (22-30); Chloride 110 mmol/L (98-107); Glucose 146 mg/dL (74-99); Non-African American GFR(CKD) 37 (>60 ml/min/1.73 sqM); Partial Thromboplastin Time 25.8 sec (22.0-30.0); Potassium 3.3 mmol/L (3.5-5.1); Prothrombin Time 11.1 sec (9.0-12.0); Salicylate <1.0 mg/dL; Sodium 138 mmol/L (137-145); Total Bilirubin 0.5 mg/dL (0.2-1.3)
[2021-12-26 12:57] LABS: Lactic Acid, Venous 2.1 mmol/L (0.7-2.0)
[2021-12-26] MEDS ORDERED: HYDROmorphone 1 MG/ML 1 ML SYRINGE IVP PRN (13:13)
[2021-12-26] MEDS ORDERED: LORazepam 2 MG/ML INJ IV PRN (13:13)
[2021-12-27] MEDS ORDERED: IPRATROPIUM-ALBUTEROL 3 ML NEB INHALATION PRN (00:17)
[2021-12-27] MEDS: IPRATROPIUM-ALBUTEROL 3 ML NEB INHALATION SCH ×4 (03:29→15:09)
--- NOTE | 2021-12-27 03:53 | HP ---
HISTORY AND PHYSICAL CHIEF COMPLAINT: Unresponsiveness. HISTORY OF PRESENT ILLNESS: This 85-year-old gentleman with a past medical history of dementia, diabetes mellitus, hyperlipidemia, being followed by Dr. Terrazas in the outpatient setting, was found to have unresponsiveness. EMS found the patient sitting in a chair and the patient became progressively obtunded, and intubation was done. Meanwhile, the evaluation including CT brain showed significant large cerebellar hemorrhage with compression of the fourth ventricle and hydrocephalus. [facility] was contacted, but because the patient also developed hypotension and because of the extremely serious condition, [facility] advised against transfer. Case was discussed with the family, and the patient is currently no code, and family is awaiting for other family members to arrive. PAST MEDICAL HISTORY: Reviewed and include diabetes mellitus and dementia. HOME MEDICATIONS: Reviewed and include Zyloprim. Doses and rest of medication noted. ALLERGIES: None. FAMILY HISTORY: Could not be taken. SOCIAL HISTORY: Could not be taken. REVIEW OF SYSTEMS: Could not be taken. PHYSICAL EXAMINATION: VITAL SIGNS: Pulse is 54, blood pressure 69/44, respirations 16. HEENT: Conjunctivae normal. NECK: No JVD. CARDIOVASCULAR: S1, S2. RESPIRATION: Breath sounds diminished at the bases. Scattered rhonchi and crackles. ABDOMEN: Soft. NERVOUS SYSTEM: Unresponsive. SKIN: No ulcer, rash, bleeding. JOINTS: No active deforming arthropathy. LABORATORY DATA: Reviewed. ASSESSMENT: 1. Acute intracerebellar bleeding with metabolic encephalopathy and coma. 2. Acute respiratory failure, on mechanical ventilation. 3. Diabetes mellitus, type 2. 4. Hypertension. 5. Hyperlipidemia. 6. History of dementia. 7. No code, no CPR, no vent. RECOMMENDATIONS AND DISCUSSION: In this 85-year-old gentleman, presented with multiple medical problems, has extremely grave prognosis because of the significant intracerebellar bleeding as well as compression and change in mental status, respiratory failure. At this time, the patient is on mechanical ventilation; however, the patient is no code, no CPR, no vent. I discussed with the family and the family is awaiting other family members to arrive to make a decision regarding full comfort measures at this point. Otherwise, we will continue to monitor. Prognosis is extremely guarded. Further recommendations to follow. MMODL / IJN: [id number] /
[2021-12-27 12:28] LABS: Glucose,Whole Blood 135 mg/dL (70-110)
[2021-12-27] MEDS ORDERED: SODIUM CHLORIDE 0.9% 1,000 ML IV SCH (12:45)
[2021-12-27 13:14] VITALS: BP 55/33; RESP 16; TEMP 91.3
[2021-12-27] MEDS ORDERED: ONDANSETRON 4 MG/2 ML VIAL IVP PRN (13:35)
[2021-12-27] MEDS ORDERED: MORPHINE SULFATE 4 MG/ML SYRINGE IV PRN (13:35)
[2021-12-27] MEDS ORDERED: ATROPINE OPHTH SOLN 1% 5ML BTL SUBLINGUAL PRN (13:35)
[2021-12-27] MEDS ORDERED: MORPHINE SULFATE (100 MG/2 ML) 100 MG in SODIUM CHLORIDE 0.9% 100 ML IV SCH (14:00)
[2021-12-27] MEDS ORDERED: SCOPOLAMINE 1 MG/72 HR PATCH TRANSDERM SCH (14:00)
--- NOTE | 2021-12-27 14:28 | P.CNPUL ---
History of Present Illness Consult date: 12/27/21 Chief complaint: unresponsiveness History of present illness: this is a 85-year-old male patient who was brought to the emergency department for being unresponsive. The patient's family stated that the patient was in his normal condition in the morning. Uvad-jho-kweouk of the day, the patient became progressively altered. EMS arrived to the scene and the patient was found to be sitting on a chair. He was unresponsive to any verbal or painful stimulation.The patient was found to be hemodynamically stable. The patient was brought into the ED on admission was found to be apneic and hypotensive. At that point, the patient's BP was 96/58 with a pulse of 60 and normal respiration. Immediately, the patient was intubated and is on a mechanical ventilator. Initial blood work showed a white cell, 6.1 with a hemoglobin of 8.6 and a platelet count of 133. Sodium was 138, potassium was 3.3 and chloride is 110 with a bicarb of 21. BUN was 29 with a creatinine of 1.6. Accordingly, as the patient was unresponsive, the patient was apneic. The patient was intubated and placed on a mechanical ventilator. Upon the request of the family, initially, status post fall. The patient was given a dose of epinephrine prior to intubation for low blood pressure and subsequently the patient was intubated. During intubation process, the patient was found to have no gag reflex. The patient was intubated without any medication. Chest x-ray was done and the tube placement was confirmed. Following that, the patient was referred for a CAT scan of the brain and the patient was found to have a very large intraventricular bleed with subarachnoid extension. The patient was found to have a large acute intracranial hemorrhage measuring 4 cm in size involving the cerebellum and compression of the fourth ventricle and extension of the hemorrhage to do the form of the third ventricles along with a component of compression hydrocephalus. There was also a large area of hyper density on the basis of subdural component to the hemorrhage. There was also evidence of brainstem compression and tonsillar herniation. The CT angiogram showed again intracranial hemorrhage involving the ventricles and predominantly the posterior cranial fossa. There was compression of the brainstem with crowding of the basilar cisterns. No evidence of any intracranial aneurysm. There was evidence of atherosclerosis involving the left carotid bifurcation which was in order of 25-50%.. The family was made aware of those changes. Initial plan was to transfer this patient outside hospital and the patient was accepted by neurosurgical services at [facility]. Nevertheless, the family ultimately decided not to and didn't want to proceed with comfort care. They wanted to make the patient comfortable and it 1 more family members to arrive prior to making a terminal wean and station. Overnight, the patient remained in the emergency room this morning at transfer this patient to the intensive care unit. The plan is to proceed with comfort care measures wants other family members arrive. I did do a neurologic examination today. On today's evaluation, was a fixed dilated, no CEPHALIC reflex, no corneal reflex, no gag or cough reflex, the patient remains completely apneic and the patient did not show any respiratory effort is wide taken off the mechanical ventilator for at least 1 minute. An official brain protocol was not done. Nevertheless, there was obvious that the patient had signs of brain herniation and possible brain . Therefore brain protocol was not done as the patient's CODE STATUS was DO NOT RESUSCITATE and the patient's family were headed towards comfort care measures. The patient accordingly was transferred to the intensive care unit. The patient's family did not want any blood draws or any other further workup done on their father. Review of Systems ROS unobtainable: due to mental status Past Medical History Past Medical History: Dementia, Diabetes Mellitus, Hyperlipidemia, Hypertension Additional Past Medical History / Comment(s): Type 2 diabetes . poss. Prostate cancer History of Any Multi-Drug Resistant Organisms: None Reported Past Surgical History: No Surgical Hx Reported Additional Past Surgical History / Comment(s): cataract on left eye Past Anesthesia/Blood Transfusion Reactions: No Reported Reaction Past Psychological History: No Psychological Hx Reported Smoking Status: Never smoker Past Alcohol Use History: None Reported Past Drug Use History: None Reported Medications and Allergies Home Medications Medication Instructions Recorded Confirmed Type Atorvastatin [Lipitor] 20 mg PO HS 08/08/16 06/11/21 History Brinzolamide/Brimonidine Tart 1 drop RIGHT EYE AC-LUNCH 08/08/16 06/11/21 History [Simbrinza 1%-0.2% Eye Drops] Cyanocobalamin (Vitamin B-12) 1,000 mcg PO SUTUTHSA@2100 08/08/16 06/11/21 History [Vitamin B-12] Latanoprost [Xalatan 0.005%] 1 drop RIGHT EYE HS 08/08/16 06/11/21 History allopurinoL [Zyloprim] 300 mg PO DAILY 08/08/16 06/11/21 History Aspirin EC [Ecotrin Low Dose] 81 mg PO DAILY 03/27/21 06/11/21 History Cholecalciferol [Vitamin D3 (125 125 mcg PO HS 03/27/21 06/11/21 History Mcg = 5000 Iu)] Krill Oil 500 mg PO DAILY 03/27/21 06/11/21 History Saw [place] 500 mg PO BID 03/27/21 06/11/21 History Sertraline HCl [Zoloft] 25 mg PO HS 03/27/21 06/11/21 History Furosemide [Lasix] 40 mg PO DAILY #30 tab 03/30/21 06/11/21 Rx Losartan [Cozaar] 25 mg PO DAILY #30 tab 03/30/21 06/11/21 Rx Potassium Chloride ER [K-Dur 20] 20 meq PO DAILY #30 tab 03/30/21 06/11/21 Rx Metoprolol Succinate (ER) [Toprol 25 mg PO DAILY 14 Days #14 tab 06/11/21 Rx Xl] Metoprolol Succinate [Toprol XL] 100 mg PO DAILY 06/11/21 06/11/21 History Allergies Allergy/AdvReac Type Severity Reaction Status Date / Time No Known Allergies Allergy Verified 12/26/21 11:50 Physical Exam Vitals: Vital Signs Temp Pulse Resp BP Pulse Ox FiO2 12/27/21 13:10 65 16 55/33 99 12/27/21 13:07 50 12/27/21 13:00 91.3 F L 65 16 51/31 98 50 12/27/21 12:51 66 16 98 12/27/21 12:15 64 18 84/50 96 12/27/21 12:00 50 12/27/21 11:52 63 12/27/21 11:41 62 12/27/21 11:38 50 12/27/21 11:00 63 18 70/46 99 12/27/21 10:07 64 18 78/43 94 L 12/27/21 07:50 53 L 12/27/21 07:40 53 L 50 12/27/21 07:29 53 L 18 76/49 97 12/27/21 06:53 53 L 16 72/46 100 12/27/21 04:23 53 L 16 63/41 99 12/27/21 03:47 50 L 12/27/21 03:32 50 L 12/27/21 03:29 50 12/27/21 02:00 52 L 16 59/35 100 12/27/21 01:06 49 L 12/27/21 00:53 50 L 12/27/21 00:33 50 12/27/21 00:03 49 L 16 51/33 99 12/26/21 23:02 49 L 11 L 52/35 98 12/26/21 22:45 51 L 13 69/46 98 12/26/21 19:37 50 L 11 L 53/35 100 12/26/21 19:31 50 12/26/21 18:42 50 L 16 57/37 99 12/26/21 17:51 49 L 16 59/41 99 12/26/21 16:20 50 L 16 64/42 99 12/26/21 16:07 50 12/26/21 15:02 52 L 16 69/44 99 12/26/21 14:40 52 L 16 61/40 99 Unresponsive, intubated on a mechanical ventilator. Orogastric and orotracheal tube are both in place. Head exam was generally normal. There was no scleral icterus or corneal arcus. Mucous membranes were moist. Neck was supple and without jugular venous distension, thyromegaly, or carotid bruits. Carotids were easily palpable bilaterally. There was no adenopathy. Lungs were clear to auscultation and percussion, and with normal diaphragmatic excursion. No wheezes or rales were noted. Cardiac exam revealed the PMI to be normally situated and sized. The rhythm was regular and no extrasystoles were noted during several minutes of auscultation. The first and second heart sounds were normal and physiologic splitting of the second heart sound was noted. There were no murmurs, rubs, clicks, or gallops. Abdominal exam revealed normal bowel sounds. The abdomen was soft, non-tender, and without masses, organomegaly, or appreciable enlargement of the abdominal aorta. Examination of the extremities revealed easily palpable radial, femoral and pedal pulses. There was no cyanosis, clubbing or edema. Examination of the skin revealed no evidence of significant rashes, suspicious appearing nevi or other concerning lesions. Neurologically the pupils are fixed dilated. No cranial nerve reflexes. No breathing reflex. The patient does not withdraw to any painful stimulation. Reflexes are +1 and symmetrical in all 4 extremities. No Babinski. No clonus. Results - Laboratory Findings CBC and BMP: 12/26/21 12:07 12/26/21 12:07 ABG ABG pH 7.36 (7.35-7.45) 12/26/21 12:16 ABG pCO2 39 mmHg (35-45) 12/26/21 12:16 ABG pO2 311 mmHg (83-108) H 12/26/21 12:16 ABG O2 Saturation 100.0 % (94-97) H 12/26/21 12:16 PT/INR, D-dimer PT 11.1 sec (9.0-12.0) 12/26/21 12:07 INR 1.0 (<1.2) 12/26/21 12:07 Abnormal lab findings: Abnormal Labs 12/26/21 12/26/21 12/26/21 12:07 12:07 12:07 RBC 2.68 L Hgb 8.6 L Hct 28.0 L MCV 104.6 H MCHC 30.8 L Plt Count 133 L Lymphocytes # 0.4 L ABG pO2 ABG O2 Saturation Potassium 3.3 L Chloride 110 H Carbon Dioxide 21 L BUN 29 H Creatinine 1.64 H Glucose 146 H POC Glucose (mg/dL) Plasma Lactic Acid Regulo 2.1 H* Calcium 7.5 L Troponin I Total Protein 5.0 L Albumin 2.6 L 12/26/21 12/26/21 12/27/21 12:07 12:16 12:25 RBC Hgb Hct MCV MCHC Plt Count Lymphocytes # ABG pO2 311 H ABG O2 Saturation 100.0 H Potassium Chloride Carbon Dioxide BUN Creatinine Glucose POC Glucose (mg/dL) 135 H Plasma Lactic Acid Regulo Calcium Troponin I 0.106 H* Total Protein Albumin - Diagnostic Findings Chest x-ray: image reviewed Assessment and Plan Plan: Acute intracranial hemorrhage involving the posterior fossa within the ventricular system including the posterior horn of the lateral ventricle and fourth ventricle and there is evidence of compression of the brain stem and herniation. The patient has evidence of tonsillar herniation along with based on compression. Unresponsiveness secondary to above. Neurologic exam done in emergency department was consistent with brain October the official brain protocol was not done at the patient's cor status has been switched to comfort care measures. Apnea, intubated on a mechanical ventilator to support her breathing and the res piration and oxygenation. Diabetes mellitus Hypertension Hyperlipidemia Dementia Chronic kidney disease Plan Transfer this patient to the intensive care unit Proceed with comfort Measures once all family members are available in the intensive care unit. This will be done today. The patient will be given a terminal wean and the patient will be extubated accordingly. Very poor prognosis. Had a lengthy discussion with the family and they're agreeable to the plan.
[2021-12-27 14:31] VITALS: PULSE 63
--- NOTE | 2021-12-28 02:46 | PN ---
PROGRESS NOTE DATE OF SERVICE: 12/27/2021 SUBJECTIVE: This 85-year-old gentleman, who was admitted with unresponsiveness and acute intracerebellar bleeding, also had features of herniation. The patient is on mechanical ventilation. Family is contemplating comfort measures. The patient is being mechanically ventilated. PHYSICAL EXAMINATION: VITAL SIGNS: Pulse 64, blood pressure ntd, respirations 18. HEENT: Conjunctivae normal. NECK: No JVD. CARDIOVASCULAR: S1, S2. RESPIRATION: Breath sounds diminished at the bases. A few scattered rhonchi. NERVOUS SYSTEM: Unresponsive. LABORATORY DATA: Noted. ASSESSMENT: 1. Acute intracerebellar bleeding metabolic encephalopathy, and coma. 2. Acute hypoxic respiratory failure, on mechanical ventilation. 3. Diabetes mellitus, type 2. 4. Hypertension. 5. Hyperlipidemia. 6. History of dementia. 7. No code, no CPR, no vent. 8. comfort measures. RECOMMENDATIONS: In this 85-year-old gentleman, who presented with multiple complex medical issues, we will continue to monitor. Otherwise, continue with mechanical ventilation. The prognosis is extremely guarded, which I explained to the family and they are discussing possible comfort measures with all the family members arrived. Prognosis is guarded. Further recommendations to follow. MMODL / IJN: [id number] / SHAILA
--- NOTE | 2021-12-28 23:35 | DS ---
DISCHARGE SUMMARY PRELIMINARY CAUSE OF : Acute intracerebellar bleeding with elevated intracranial pressure as well as herniation. OTHER DIAGNOSES: 1. Acute metabolic encephalopathy. 2. Acute hypoxic respiratory failure, on mechanical ventilation. 3. Diabetes mellitus, type 2. 4. Hypertension. 5. Hyperlipidemia. 6. History of dementia. 7. No code, no CPR, no vent. 8. Comfort measures. HISTORY OF PRESENT ILLNESS AND HOSPITAL COURSE: This 85-year-old gentleman with the past medical history of multiple medical problems, being followed by Dr. Terrazas, and the patient was admitted with unresponsiveness, and the patient was found to have acute intracerebellar bleeding and transferred to [facility] is being arranged, but however, before the patient is able to be transferred, the patient developed significant hypotension and respiratory failure. The patient was mechanically intubated, and the case was again discussed with [facility] team and decided against the transfer because of the acute severity of the condition and the extremely grave prognosis for the patient in this elderly individual. The case was discussed with family and the family decided the patient on comfort measures, and the patient succumbed to his above illnesses. The prognosis was extremely guarded throughout the hospitalization. Please refer to multiple consultations, progress notes, and staff notes for further details, and CT scan images for further results. MMODL / IJN: [id number] /
== END 2021-12-27 18:12 | disposition expired | DRG 64 ==
LOC: EDBD → EC 10:48 → MERGE 10:48 → 2SICU 13:15
PROVIDERS: ADMIT Internal Medicine; ATTEND Internal Medicine
PROC: 3E043XZ Introduction of Vasopressor into Central Vein, Percutaneous Approach (ICD-10-PCS; principal; 2021-12-26)
PROC: 5A1935Z Respiratory Ventilation, Less than 24 Consecutive Hours (ICD-10-PCS; principal; 2021-12-26)
PROC: 0BH17EZ Insertion of Endotracheal Airway into Trachea, Via Natural or Artificial Opening (ICD-10-PCS; 2021-12-26)
PROC: 0D9670Z Drainage of Stomach with Drainage Device, Via Natural or Artificial Opening (ICD-10-PCS; 2021-12-26)
DX: I61.5 Nontraumatic intracerebral hemorrhage, intraventricular (principal); G93.41 Metabolic encephalopathy; G93.5 Compression of brain; J96.01 Acute respiratory failure with hypoxia; G91.9 Hydrocephalus, unspecified; Z99.11 Dependence on respirator [ventilator] status; Z66 Do not resuscitate; F03.90 Unspecified dementia, unspecified severity, without behavioral disturbance, psychotic disturbance, mood disturbance, and anxiety; Z51.5 Encounter for palliative care; R06.81 Apnea, not elsewhere classified; I95.9 Hypotension, unspecified; I10 Essential (primary) hypertension; E11.9 Type 2 diabetes mellitus without complications; E78.5 Hyperlipidemia, unspecified; Z79.899 Other long term (current) drug therapy; Z79.82 Long term (current) use of aspirin; Z85.46 Personal history of malignant neoplasm of prostate
CPT/HCPCS: 36415; 36600; 70450; 70496; 70498; 80053; 80143; 80179; 80320; 82140; 82805; 83605; 84484; 85025; 85610; 85730; 87070; 87077; 87186; 87205; 93005; 94002; 94003; 94640; 96361; 96374; 99285